=== PATIENT | female | born 1930 | race Caucasian/White ===

== ENCOUNTER 2018-12-03 14:18 | Emergency (ER) | payer MEDICARE, OTHER ==
[~2018-12-03] VITALS: Ht 147.3 cm; Wt 64.9 kg
[~2018-12-03 14:18] MED LIST: ASPI325T32 PO; CALC-654 PO; CALC-823 PO; DPAS20025 PO; FISH1CAP15 PO; FLEC100T PO; HYDR-3923 PO; LEVO75TA6 PO; MV-M1TAB38 PO; NITR-65 PO; PHEN64.8 PO; PRAV40TA2 PO
--- OUTSIDE RECORDS SUMMARY | 2018-12-03 15:16 | XMS REPORT | Continuity of Care Document ---
Author Author [facility] Organization [facility] Address Unknown Phone Unavailable Allergies Active Description Code Type Severity Reaction Onset Reported/Identified Relationship to Patient Clinical Status Yes codeine [id number] Drug Allergy Unknown N/A 01/01/2016 Yes hydrocodone [id number] Drug Allergy Unknown N/A 01/01/2016 Yes iodine [id number] Drug Allergy Unknown N/A 01/01/2016 Yes IV DYE IV DYE Unknown N/A 01/01/2016 Yes sulfamethoxazole [id number] Drug Allergy Unknown N/A 01/01/2016 Yes trimethoprim [id number] Drug Allergy Unknown N/A 01/01/2016 Medications There is no data. 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 Results There is no data. Encounters ACCT No. Visit Date/Time Discharge Status Pt. Type Provider Facility Loc./Unit Complaint [id number] 12/03/2018 14:19:00 ACT Emergency BL[facility]ST [facility] ER FALL [id number] 01/01/2016 08:59:00 Document Registration
--- NOTE | 2018-12-03 16:50 | ED Trauma-Multisystem ---
General Chief Complaint: Trauma-Non Activation Stated Complaint: FALL Nursing Triage Note: TO ED PER EMS FROM [facility] PATIENT WAS GETTING OUT OF CHAIR R KNEE GAVE OUT. HAS PROBLEMS WITH KNEE HAD INJECTION YESTERDAY IN R KNEE. FELL TO FLOOR HITTING HEAD NO LOC ALERT ON ADMIT. HEMATOMA TO FOREHEAD. Source of Information: Patient Exam Limitations: No Limitations History of Present Illness Date Seen by Provider: Dec 03, 2018 Time Seen by Provider: 14:20 Initial Comments 88 year old female who was brought to the emergency room by [facility] after a fall at [facility] with complaints of a fall after her right knee gave out. She reports that she has chronic right knee issues and that she is "bone on bone" and yesterday she had an injection to the knee yesterday. She reports that she fell to the floor striking her head on the floor. She denies neck pain/LOC. She does have ecchymosis and hematoma to the right side of her forehead. She is A&O on arrival to the ED. Denies any pain at this time. She does take blood thinners. Occurred: Just Prior to Arrival Pain/Injury Location: Face Associated Symptoms (Fall): Denies Symptoms Allergies and Home Medications Allergies Coded Allergies: codeine (Unverified Allergy, Unknown, 01/01/16) hydrocodone (Unverified Allergy, Unknown, 01/01/16) iodine (Verified Allergy, Unknown, 01/01/16) sulfamethoxazole (Unverified Allergy, Unknown, 01/01/16) trimethoprim (Unverified Allergy, Unknown, 01/01/16) Uncoded Allergies: IV DYE (Allergy, Unknown, 01/01/16) Home Medications Aspirin 325 Mg Tablet.dr, 325 MG PO DAILY, (Reported) Calcium Carbonate/Vitamin D3 1 Each Tablet, 1 EACH PO DAILY, (Reported) Dipyridamole/Aspirin 1 Ea Cap, 1 CAP PO BID Prescribed by: EMIL HERMAN on 01/01/16 1314 Fish Oil/Dha/Epa 1 Each Capsule, 1 EACH PO DAILY, (Reported) Flecainide Acetate 100 Mg Tablet, 100 MG PO BID, (Reported) Hydralazine HCl 25 Mg Tablet, 25 MG PO BID, (Reported) Levothyroxine Sodium 75 Mcg Tablet, 75 MCG PO DAILY, (Reported) Mv-Mn/FA/Vit K/Lycop/Lut/Zeaxa 1 Each Tablet, 1 EACH PO DAILY, (Reported) Nitrofurantoin Monohyd/M-Cryst 100 Mg Capsule, 1 TAB PO BID Prescribed by: EMIL HERMAN on 01/01/16 1314 Phenobarbital 64.8 Mg Tablet, 129.6 MG PO HS, (Reported) Pravastatin Sodium 40 Mg Tablet, 40 MG PO DAILY, (Reported) Patient Home Medication List Home Medication List Reviewed: Yes Review of Systems Review of Systems Constitutional: no symptoms reported, see HPI Skin: see HPI, other (hematoma to forehead) Psychiatric/Neurological: See HPI All Other Systems Reviewed Negative Unless Noted: Yes Past Kqbxlsm-Xiilze-Fksqvo Hx Past Med/Social Hx: Reviewed Nursing Past Med/Soc Hx Patient Social History Alcohol Use: Denies Use Recreational Drug Use: No Smoking Status: Never a Smoker Recent Foreign Travel: No Contact w/Someone Who Travel: No Recent Infectious Disease Expo: No Immunizations Up To Date Tetanus Booster (TDap): Less than 5yrs Past Medical History Surgeries: Yes (pacemaker/knee replacement/nose surgery (cancer)) Joint Replacement Respiratory: No Cardiac: Yes (has pacemaker) Irregular Heartbeat Neurological: Yes Seizure Disorder, TIA Reproductive Disorders: No Gastrointestinal: No Musculoskeletal: Yes Arthritis Endocrine: No Cancer: Yes (nose) Psychosocial: No Integumentary: No Blood Disorders: No Family Medical History Reviewed Nursing Family Hx Physical Exam Vital Signs Vital Signs - First Documented 12/03/18 12/03/18 14:18 17:06 Temp 98.0 Pulse 100 Resp 18 B/P (MAP) 150/116 (127) Pulse Ox 96 O2 Delivery Room Air Height, Weight, BMI Height: 4'10.00" Weight: 143lbs. oz. 64.827465jl; BMI Method:Stated General Appearance: No Apparent Distress, WD/WN Head: Ecchymosis (and hematoma to right side of forehead) Eyes: Bilateral Eye Normal Inspection, Bilateral Eye PERRL, Bilateral Eye EOMI Ears, Nose, Throat: Hearing Grossly Normal, No Evidence of ENT Injury, No Dental Injury Neck: Full Range of Motion, Normal Inspection, Non Tender, Supple Cardiovascular: Regular Rate, Rhythm, No Edema, No Gallop, No JVD, No Murmur, Normal Peripheral Pulses Respiratory: Chest Non Tender, Lungs Clear, Normal Breath Sounds, No Accessory Muscle Use, No Respiratory Distress Extremity: Normal Capillary Refill, Normal Inspection, Normal Range of Motion, Non Tender, No Calf Tenderness, No Pedal Edema, Other Neurologic/Psychiatric: Alert, Oriented x3, Normal Mood/Affect Skin: Normal Color, Warm/Dry Custer Coma Score Best Eye Response (Custer): (4) Open Spontaneously Best Verbal Response (Custer): (5) Oriented Best Motor Response (Melisa): (6) Obeys Commands Melisa Total: 15 Progress/Results/Core Measures Results/Orders My Orders Orders - [facility]UE [facility]ST Ct Head Wo (12/03/18 14:24) Vital Signs/I&O 12/03/18 12/03/18 14:18 17:06 Temp 98.0 Pulse 100 Resp 18 18 B/P (MAP) 150/116 (127) 139/100 (113) Pulse Ox 96 95 O2 Delivery Room Air Room Air Blood Pressure Mean: 127 Progress Progress Note : Time: 16:49 Progress Note I have seen and evaluated the patient. I have informed her and her family of imaging studies. She was able to transfer to [facility] with out difficulty. She agrees with plan of care, plans for discharge, return precautions were given. Diagnostic Imaging Diagonstic Imaging: CT Plain Films/CT/US/NM/MRI: head Comments NAME: MAKAYLA POLANCO [facility] REC#: [id number] PHYSICIAN: [facility] CC: KENNETH BEST STEPHEN D MD Page 2 of 2 RADIOLOGY REPORT [facility], [place] CC: KENNETH BEST STEPHEN D MD Page 1 of 1 RADIOLOGY REPORT NAME: MAKAYLA POLANCO [facility] REC#: [id number] PT STATUS: REG ER : 1930 PHYSICIAN: [facility] ADMIT DATE: 12/03/18/ER Signed Date of Exam: 12/03/18 CT HEAD WO PROCEDURE: CT head without contrast. TECHNIQUE: Multiple contiguous axial images were obtained through the brain without the use of intravenous contrast. INDICATION: Fall. COMPARISON: Correlation is made with prior head CT from 01/01/2016. FINDINGS: There appears to be some mild soft tissue swelling in the right frontal scalp. Ventricles and sulci remain prominent consistent with the patient's age. Moderate periventricular hypodensity is noted consistent with senescent change. 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 No sulcal effacement or midline shift is identified. No acute intra-axial or extra-axial hemorrhage is identified. Cisterns are patent. Visualized paranasal sinuses are clear. IMPRESSION: 1. Right frontal scalp swelling. 2. Chronic and senescent changes. No acute intracranial process is identified. Dictated by: Dictated on workstation # [id number] Dict: 12/03/18 1446 Trans: 12/03/18 1614 Interpreted by: LENORA AMANDA MD Electronically signed by: LENORA AMANDA MD 12/03/18 1614 Reviewed: Reviewed by Me Departure Impression Primary Impression: Fall Additional Impression: Facial contusion Disposition: 01 HOME, SELF-CARE Condition: Stable/Unchanged Departure-Patient Inst. Decision time for Depature: 16:49 Referrals: NO,LOCAL PHYSICIAN (PCP/Family) Primary Care Physician Patient Instructions: Contusion (DC) Add. Discharge Instructions: Be sure to ask for assistance when you are transferring to prevent falling again. Return back to the emergency room for worsening symptoms or concerns as needed. All discharge instructions reviewed with patient and/or family. Voiced understanding. BLUE BEST Dec 03, 2018 16:50
[2018-12-03 17:06] VITALS: BP 139/100
== END 2018-12-03 17:10 | disposition home or self-care (01) ==
LOC: EDUNIT# 14:18 → ER 14:19
DX: S00.83XA Contusion of other part of head, initial encounter (principal); G40.909 Epilepsy, unspecified, not intractable, without status epilepticus; Z86.73 Personal history of transient ischemic attack (TIA), and cerebral infarction without residual deficits; Z88.5 Allergy status to narcotic agent; Z91.041 Radiographic dye allergy status; Z88.2 Allergy status to sulfonamides; Z88.8 Allergy status to other drugs, medicaments and biological substances; Z79.82 Long term (current) use of aspirin; Z95.0 Presence of cardiac pacemaker; W07.XXXA Fall from chair, initial encounter; W22.09XA Striking against other stationary object, initial encounter
CPT/HCPCS: 70450

== ENCOUNTER 2019-01-06 10:08 | Emergency (ER) | payer MEDICARE, OTHER ==
[~2019-01-06] VITALS: Ht 147.3 cm; Wt 64.4 kg
--- OUTSIDE RECORDS SUMMARY | 2019-01-06 10:12 | XMS REPORT | Continuity of Care Document ---
Author Organization Unknown Address Unknown Allergies Active Description Code Type Severity Reaction Onset Reported/Identified Relationship to Patient Clinical Status Yes codeine [id number] Drug Allergy Unknown N/A 01/01/2016 Yes hydrocodone [id number] Drug Allergy Unknown N/A 01/01/2016 Yes iodine [id number] Drug Allergy Unknown N/A 01/01/2016 Yes IV DYE IV DYE Unknown N/A 01/01/2016 Yes sulfamethoxazole [id number] Drug Allergy Unknown N/A 01/01/2016 Yes trimethoprim [id number] Drug Allergy Unknown N/A 01/01/2016 Medications There is no data. 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 01/01/2016 Ot Z79.82 SENIOR LIVING ( CURRENT) USE OF ASPIRIN 01/01/2016 Ot 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 PACEMAKER 12/03/2018 [facility] Ot G40.909 EPILEPSY, UNSP, NOT INTRACTABLE, WITHOUT 12/03/2018 BLUE [facility]ST Ot S00.83XA CONTUSION OF OTHER PART OF HEAD, INITIAL 12/03/2018 BLUE BEST Ot W07.XXXA FALL FROM CHAIR, INITIAL ENCOUNTER 12/03/2018 BLUE [facility]ST Ot W22.09XA STRIKING AGAINST OTHER STATIONARY OBJECT 12/03/2018 BLUE BEST Ot Z79.82 SENIOR LIVING (CURRENT) USE OF ASPIRIN 12/03/2018 BLUE BEST Ot Z86.73 PRSNL HX OF TIA (TIA), AND CEREB INFRC W 12/03/2018 BLUE BEST Ot Z88.2 ALLERGY STATUS TO SULFONAMIDES STATUS 12/03/2018 MYRA BESTIS Ot Z88.5 ALLERGY STATUS TO NARCOTIC AGENT STATUS 12/03/2018 NASIR BLUE Ot Z88.8 ALLERGY STATUS TO OTH DRUG/MEDS/BIOL SUB 12/03/2018 NASIR, BLUE Ot Z91.041 RADIOGRAPHIC DYE ALLERGY STATUS 12/03/2018 NASIR, BLUE Ot 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 PACEMAKER 12/05/2018 BLUE BEST Ot G40.909 EPILEPSY, UNSP, NOT INTRACTABLE, WITHOUT 12/05/2018 MYRA BESTIS Ot S00.83XA CONTUSION OF OTHER PART OF HEAD, INITIAL 12/05/2018 BLUE [facility]ST Ot W07.XXXA FALL FROM CHAIR, INITIAL ENCOUNTER 12/05/2018 BLUE BEST Ot W22.09XA STRIKING AGAINST OTHER STATIONARY OBJECT 12/05/2018 [facility]ST Ot Z79.82 SENIOR LIVING (CURRENT) USE OF ASPIRIN 12/05/2018 MYRA BESTIS Ot Z86.73 PRSNL HX OF TIA (TIA), AND CEREB INFRC W 12/05/2018 MYRA BESTIS Ot Z88.2 ALLERGY STATUS TO SULFONAMIDES STATUS 12/05/2018 NASIR BLUE Ot Z88.5 ALLERGY STATUS TO NARCOTIC AGENT STATUS 12/05/2018 NASIR BLUE Ot Z88.8 ALLERGY STATUS TO OTH DRUG/MEDS/BIOL SUB 12/05/2018 MYRA BESTIS Ot Z91.041 RADIOGRAPHIC DYE ALLERGY STATUS 12/05/2018 NASIR BLUE Ot 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 PACEMAKER Procedures There is no data. Results There is no data. Encounters ACCT No. Visit Date/Time Discharge Status Pt. Type Provider Facility Loc./Unit Complaint [id number] 12/03/2018 14:19:00 12/03/2018 17:10:00 DIS Emergency BLUE [facility]ST [facility] ER FALL [id number] 01/06/2019 10:09:00 ACT Emergency KARIN CUADRA MD [facility] ER FALL [id number] 01/01/2016 08:59:00 Document Registration
--- NOTE | 2019-01-06 10:32 | ED Fall/Injury ---
General Chief Complaint: Trauma-Non Activation Stated Complaint: FALL Nursing Triage Note: PT BROUGHT IN BY EMS FROM [facility] WITH COMPLAINT OF FALL. PT STATES SHE WAS IN THE SHOWER AND SLIPPED. STATES SHE HIT HER RIGHT ELBOW AND RIGHT SIDE OF HEAD. DENIES LOC. DENIES ANYOTHER INJURY. Source: patient, EMS Exam Limitations: no limitations History of Present Illness Date Seen by Provider: Jan 06, 2019 Time Seen by Provider: 10:05 Initial Comments The patient presents to ER by EMS from via [facility] with chief complaint that just prior to arrival she was in the shower with staff and the drain was not draining the water's and she slipped in the water and fell against her right elbow and struck the right occiput of her head. She does not take her Eliquis anymore because they took it off secondary to her history of falls. She does still take aspirin however. She denies any dysuria, fevers chills cough shortness of breath or other recent history of illness. She had a large bump on her right elbow which is giving her the most pain. Sitting minor discomfort in her right hip but was able to walk to the cot with EMS. Location Injury Occurred: [facility] Allergies and Home Medications Allergies Coded Allergies: codeine (Unverified Allergy, Unknown, 01/01/16) hydrocodone (Unverified Allergy, Unknown, 01/01/16) iodine (Verified Allergy, Unknown, 01/01/16) sulfamethoxazole (Unverified Allergy, Unknown, 01/01/16) trimethoprim (Unverified Allergy, Unknown, 01/01/16) Uncoded Allergies: IV DYE (Allergy, Unknown, 01/01/16) Home Medications Aspirin 325 Mg Tablet.dr, 325 MG PO DAILY, (Reported) Calcium Carbonate/Vitamin D3 1 Each Tablet, 1 EACH PO DAILY, (Reported) Dipyridamole/Aspirin 1 Ea Cap, 1 CAP PO BID Prescribed by: EMIL HERMAN on 01/01/16 1314 Fish Oil/Dha/Epa 1 Each Capsule, 1 EACH PO DAILY, (Reported) Flecainide Acetate 100 Mg Tablet, 100 MG PO BID, (Reported) Hydralazine HCl 25 Mg Tablet, 25 MG PO BID, (Reported) Levothyroxine Sodium 75 Mcg Tablet, 75 MCG PO DAILY, (Reported) Mv-Mn/FA/Vit K/Lycop/Lut/Zeaxa 1 Each Tablet, 1 EACH PO DAILY, (Reported) Nitrofurantoin Monohyd/M-Cryst 100 Mg Capsule, 1 TAB PO BID Prescribed by: EMIL HERMAN on 01/01/16 1314 Phenobarbital 64.8 Mg Tablet, 129.6 MG PO HS, (Reported) Pravastatin Sodium 40 Mg Tablet, 40 MG PO DAILY, (Reported) Patient Home Medication List Home Medication List Reviewed: Yes Review of Systems Review of Systems Constitutional: No chills, No fever Eyes: Denies Blindness, Denies Blurred Vision, Denies Drainage Ears, Nose, Mouth, Throat: denies ear pain, denies ear discharge Respiratory: No cough, No short of breath Cardiovascular: No chest pain, No edema Gastrointestinal: No abdominal pain, No constipation, No diarrhea, No nausea Genitourinary: No discharge, No dysuria Musculoskeletal: No back pain; joint pain (right elbow and right hip) Past Edxcrsu-Debhgr-Umkbap Hx Patient Social History Alcohol Use: Denies Use Recreational Drug Use: No Smoking Status: Never a Smoker Recent Foreign Travel: No Contact w/Someone Who Travel: No Recent Infectious Disease Expo: No Immunizations Up To Date Tetanus Booster (TDap): Less than 5yrs Past Medical History Surgeries: Yes (pacemaker/knee replacement/nose surgery (cancer)) Joint Replacement Respiratory: No Cardiac: Yes (has pacemaker) Irregular Heartbeat Neurological: Yes Seizure Disorder, TIA Reproductive Disorders: No Gastrointestinal: No Musculoskeletal: Yes Arthritis Endocrine: No Cancer: Yes (nose) Psychosocial: No Integumentary: No Blood Disorders: No Physical Exam Vital Signs Vital Signs - First Documented 01/06/19 10:10 Pulse 86 Resp 20 B/P (MAP) 161/119 (133) Pulse Ox 97 O2 Delivery Room Air Capillary Refill : Less Than 3 Seconds Height, Weight, BMI Height: 4'10.00" Weight: 142lbs. oz. 64.943413qs; BMI Method:Stated General Appearance: WD/WN, no apparent distress HEENT: PERRL/EOMI, normal ENT inspection, pharynx normal Neck: non-tender, full range of motion, normal inspection Cardiovascular: normal peripheral pulses, regular rate, rhythm, no edema Respiratory: chest non-tender, lungs clear, normal breath sounds, no respiratory distress, no accessory muscle use Gastrointestinal: normal bowel sounds, non tender, soft, no organomegaly Extremities: normal range of motion, swelling (right olecranon bursa is about 2 cm.), other (tenderness in the right elbow but no deformity or swelling. Mild tenderness in the posterior proximal right femur.) Neurologic/Psychiatric: director of public safety II-XII nml as tested, no motor/sensory deficits, alert, normal mood/affect, oriented x 3 Skin: normal color, warm/dry Melisa Coma Score Best Eye Response: (4) Open Spontaneously Best Verbal Response: (5) Oriented Best Motor Response: (6) Obeys Commands [place] Total: 15 Progress/Results/Core Measures Results/Orders Lab Results Laboratory Tests Test 01/06/19 10:39 Range/Units Urine Color YELLOW Urine Clarity CLEAR Urine pH 6.5 5-9 Urine Specific [place] 1.010 L 1.016-1.022 Urine Protein NEGATIVE NEGATIVE Urine Glucose (UA) NEGATIVE NEGATIVE Urine Ketones NEGATIVE NEGATIVE Urine Nitrite NEGATIVE NEGATIVE Urine Bilirubin NEGATIVE NEGATIVE Urine Urobilinogen NORMAL NORMAL MG/DL Urine Leukocyte Esterase NEGATIVE NEGATIVE Urine RBC (Auto) NEGATIVE NEGATIVE Urine RBC NONE /HPF Urine WBC 2-5 /HPF Urine Squamous Epithelial Cells RARE /HPF Urine Crystals NONE /LPF Urine Bacteria MODERATE H /HPF Urine Casts NONE /LPF Urine Mucus NEGATIVE /LPF Urine Culture Indicated YES My Orders Orders - JOSE L COLINDRES Elbow, Right, 3 Views (01/06/19 10:23) Hip, Right, 2 Views (01/06/19 10:23) Ct Head/Cervical Spine Wo (01/06/19 10:23) Ua Culture If Indicated (01/06/19 10:41) Urine Culture (01/06/19 10:39) Vital Signs/I&O 01/06/19 10:10 Pulse 86 Resp 20 B/P (MAP) 161/119 (133) Pulse Ox 97 O2 Delivery Room Air Blood Pressure Mean: 133 Progress Progress Note : Time: 10:31 Progress Note Patient's having some tenderness in her right hip although she is able to walk on it. We'll obtain a plain film. She has swelling of the bursa over her olecranon process on the right side so we'll get a plain film x-ray of the right elbow. We'll get CT of the head and neck. She's declined laboratory urine and does not have any historical indication. Diagnostic Imaging Diagonstic Imaging: CT (noncontrast) Plain Films/CT/US/NM/MRI: c-spine, head Comments [facility] [place], [place] NAME: MAKAYLA POLANCO [facility] REC#: [id number] PT STATUS: REG ER : 1930 PHYSICIAN: JOSE L COLINDRES MD ADMIT DATE: 01/06/19/ER Draft Date of Exam:01/06/19 CT HEAD/CERVICAL SPINE WO PROCEDURE: CT head and CT cervical spine without contrast. TECHNIQUE: Multiple contiguous axial images were obtained through the brain and cervical spine without the use of intravenous contrast. Sagittal and coronal reformations through the cervical spine were then performed. Auto Exposure Controls were utilized during the CT exam to meet ALARA standards for radiation dose reduction. INDICATION: Trauma, head and neck pain. CT of the head: This exam is less than optimal due to streak artifact. FINDINGS: There is no mass, shift of midline or hemorrhage to suggest an acute intracranial abnormality. The ventricles are not abnormally dilated and similar in size to the prior exam of 12/03/2018. The cortical atrophy and periventricular encephalomalacia seen on the previous study are again evident and no different. The bone windows show no sign of a fracture or destructive lesion. The orbits are symmetrical and within normal limits. The sinuses are generally clear. IMPRESSION: 1. There is no evidence for an acute intracranial abnormality. When compared to the prior study, there has been no significant change. 2. If the patient is anticoagulated and the patient's symptoms of headache persist, then a short-term (24 hour) followup CT head exam should be obtained for further evaluation. CT cervical spine: There are no prior studies available for comparison. FINDINGS: The sagittal reconstructed images show the vertebral body heights and alignment to be generally within normal limits. The intervertebral spaces are fairly well-maintained given the patient's advanced age. There is no evidence for a high-grade central stenosis. There is no fracture or acute bony abnormality appreciated. There is no sign of retropharyngeal edema. The thyroid gland is unremarkable. The lung apices are clear. IMPRESSION: 1. There is no evidence for an acute bony abnormality. 2. These results were discussed with Dr. Jose L Colindres. Dictated on workstation # [id number] Dict: 01/06/19 1140 Trans: 01/06/19 1152 [id number] Interpreted by: RUBEN PACHECO MD Electronically signed by: Reviewed: Reviewed by Me Diagonstic Imaging: Xray Plain Films/CT/US/NM/MRI: elbow (r) Comments [facility] [place] [place] NAME: MAKAYLA POLANCO [facility] REC#: [id number] PT STATUS: REG ER : 1930 PHYSICIAN: JOSE L COLINDRES MD ADMIT DATE: 01/06/19/ER Draft Date of Exam:01/06/19 ELBOW, RIGHT, 3 VIEWS EXAMINATION: Right elbow radiographs, 3 views. COMPARISON: None. HISTORY: 88-year-old female, fall. Right elbow pain and swelling. FINDINGS: There is prominent soft tissue swelling adjacent to the olecranon. There is no identified radiopaque foreign body. There is no large elbow joint effusion. The lateral view is obliquely positioned. There is degenerative type enthesopathy at the common extensor tendon attachment. There is a lucency overlying the distal humerus on image 2; however, this is extending across the patient's soft tissues and also into the adjacent air. This particular lucency is very likely artifactual. There is no convincing acute fracture identified. There is no elbow joint dislocation. IMPRESSION: 1. Prominent soft tissue swelling adjacent to the olecranon. 2. No definite acute fracture at the level of the elbow. 2. No elbow joint dislocation. Dictated on workstation # [id number] Dict: 01/06/19 1102 Trans: 01/06/19 1110 [id number] Interpreted by: PK ROCHE MD Electronically signed by: Reviewed: Reviewed by Me Diagonstic Imaging: Xray Plain Films/CT/US/NM/MRI: hip (r) Comments [facility] [place] [place] NAME: MAKAYLA POLANCO [facility] REC#: [id number] PT STATUS: REG ER : 1930 PHYSICIAN: JOSE L COLINDRES MD ADMIT DATE: 01/06/19/ER Draft Date of Exam:01/06/19 HIP, RIGHT, 2 VIEWS PATIENT HISTORY: Fall, right hip pain. TECHNIQUE: 2 views of the right hip COMPARISON: None FINDINGS: There are moderate degenerative changes in the right hip joint. The femoral head is well-seated in the acetabulum. No acute fracture seen in the right hip. There is calcific atherosclerosis. IMPRESSION: Moderate degenerative changes in the right hip with no acute fracture seen. Dictated on workstation # [id number] Dict: 01/06/19 1106 Trans: 01/06/19 1110 [id number] Interpreted by: RACIEL WAITE MD Electronically signed by: Reviewed: Reviewed by Me Departure Impression Primary Impression: Fall Qualified Codes: W19.XXXA - Unspecified fall, initial encounter Additional Impressions: Olecranon bursitis of right elbow Acute right hip pain Disposition: 01 HOME, SELF-CARE Condition: Stable Departure-Patient Inst. Decision time for Depature: 12:26 Referrals: NO,LOCAL PHYSICIAN (PCP/Family) Primary Care Physician Patient Instructions: Olecranon Bursitis (DC) Add. Discharge Instructions: Keep the elbow wrapped with Vishal bandage and apply ice for 20 minutes every 4 hours for the first 2-3 days. You can use ibuprofen or Tylenol. Follow-up with primary care if it's not improving in 2-4 weeks. All discharge instructions reviewed with patient and/or family. Voiced understanding. JOSE L COLINDRES Jan 06, 2019 10:32
[2019-01-06 10:46] LABS: BILIRUBIN,URINE NEGATIVE (NEGATIVE); CLARITY,URINE CLEAR; COLOR,URINE YELLOW; GLUCOSE, URINE (UA) NEGATIVE (NEGATIVE); KETONES,URINE NEGATIVE (NEGATIVE); LEUKOCYTE ESTERASE ,URINE NEGATIVE (NEGATIVE); NITRITE,URINE NEGATIVE (NEGATIVE); PH,URINE 6.5 (5-9); PROTEIN,URINE NEGATIVE (NEGATIVE); UROBILINOGEN,URINE NORMAL (NORMAL)
[2019-01-06 10:53] LABS: BACTERIA,URINE MODERATE /HPF; SQUAMOUS EPITHELIAL CELL,UR RARE /HPF
--- NOTE | 2019-01-06 11:10 | Diagnostic Imaging Report ---
PATIENT HISTORY: Fall, right hip pain. TECHNIQUE: 2 views of the right hip COMPARISON: None FINDINGS: There are moderate degenerative changes in the right hip joint. The femoral head is well-seated in the acetabulum. No acute fracture seen in the right hip. There is calcific atherosclerosis. IMPRESSION: Moderate degenerative changes in the right hip with no acute fracture seen. Dictated by: Dictated on workstation # [id number]
--- NOTE | 2019-01-06 11:10 | Diagnostic Imaging Report ---
EXAMINATION: Right elbow radiographs, 3 views. COMPARISON: None. HISTORY: 88-year-old female, fall. Right elbow pain and swelling. FINDINGS: There is prominent soft tissue swelling adjacent to the olecranon. There is no identified radiopaque foreign body. There is no large elbow joint effusion. The lateral view is obliquely positioned. There is degenerative type enthesopathy at the common extensor tendon attachment. There is a lucency overlying the distal humerus on image 2; however, this is extending across the patient's soft tissues and also into the adjacent air. This particular lucency is very likely artifactual. There is no convincing acute fracture identified. There is no elbow joint dislocation. IMPRESSION: 1. Prominent soft tissue swelling adjacent to the olecranon. 2. No definite acute fracture at the level of the elbow. 2. No elbow joint dislocation. Dictated by: Dictated on workstation # [id number]
--- NOTE | 2019-01-06 11:52 | Diagnostic Imaging Report ---
PROCEDURE: CT head and CT cervical spine without contrast. TECHNIQUE: Multiple contiguous axial images were obtained through the brain and cervical spine without the use of intravenous contrast. Sagittal and coronal reformations through the cervical spine were then performed. Auto Exposure Controls were utilized during the CT exam to meet ALARA standards for radiation dose reduction. INDICATION: Trauma, head and neck pain. CT of the head: This exam is less than optimal due to streak artifact. FINDINGS: There is no mass, shift of midline or hemorrhage to suggest an acute intracranial abnormality. The ventricles are not abnormally dilated and similar in size to the prior exam of 12/03/2018. The cortical atrophy and periventricular encephalomalacia seen on the previous study are again evident and no different. The bone windows show no sign of a fracture or destructive lesion. The orbits are symmetrical and within normal limits. The sinuses are generally clear. IMPRESSION: 1. There is no evidence for an acute intracranial abnormality. When compared to the prior study, there has been no significant change. 2. If the patient is anticoagulated and the patient's symptoms of headache persist, then a short-term (24 hour) followup CT head exam should be obtained for further evaluation. CT cervical spine: There are no prior studies available for comparison. FINDINGS: The sagittal reconstructed images show the vertebral body heights and alignment to be generally within normal limits. The intervertebral spaces are fairly well-maintained given the patient's advanced age. There is no evidence for a high-grade central stenosis. There is no fracture or acute bony abnormality appreciated. There is no sign of retropharyngeal edema. The thyroid gland is unremarkable. The lung apices are clear. IMPRESSION: 1. There is no evidence for an acute bony abnormality. 2. These results were discussed with Dr. Jose L Colindres. Dictated by: Dictated on workstation # [id number]
[2019-01-06 13:05] VITALS: BP 132/79
== END 2019-01-06 13:05 | disposition home or self-care (01) ==
LOC: EDUNIT# 10:08 → ER 10:09
DX: M70.21 Olecranon bursitis, right elbow (principal); M25.551 Pain in right hip; G40.909 Epilepsy, unspecified, not intractable, without status epilepticus; R40.2142 Coma scale, eyes open, spontaneous, at arrival to emergency department; R40.2252 Coma scale, best verbal response, oriented, at arrival to emergency department; R40.2362 Coma scale, best motor response, obeys commands, at arrival to emergency department; Z85.828 Personal history of other malignant neoplasm of skin; Z86.73 Personal history of transient ischemic attack (TIA), and cerebral infarction without residual deficits; Z88.5 Allergy status to narcotic agent; Z91.041 Radiographic dye allergy status; Z88.2 Allergy status to sulfonamides; Z88.8 Allergy status to other drugs, medicaments and biological substances; Z79.82 Long term (current) use of aspirin; Z95.0 Presence of cardiac pacemaker; Z91.81 History of falling; W01.0XXA Fall on same level from slipping, tripping and stumbling without subsequent striking against object, initial encounter; Y92.002 Bathroom of unspecified non-institutional (private) residence as the place of occurrence of the external cause
CPT/HCPCS: 51701; 70450; 72125; 73080; 73502; 81000; 87077; 87088

== ENCOUNTER 2019-03-23 14:25 | Emergency (ER) | payer MEDICARE, OTHER | END 2019-03-23 16:56 | disposition home or self-care (01) | LOC: ER 14:25 ==

== ENCOUNTER 2019-03-25 11:29 | Emergency (ER) | payer MEDICARE, OTHER ==
[~2019-03-25] VITALS: Ht 147.3 cm; Wt 63.5 kg
[~2019-03-25 11:29] MED LIST changes: +CEPH-507 PO
--- OUTSIDE RECORDS SUMMARY | 2019-03-25 11:36 | XMS REPORT | Continuity of Care Document ---
Author Organization Unknown Address Unknown Allergies Active Description Code Type Severity Reaction Onset Reported/Identified Relationship to Patient Clinical Status Yes codeine [id number] Drug Allergy Unknown N/A 01/01/2016 Yes hydrocodone [id number] Drug Allergy Unknown N/A 01/01/2016 Yes iodine [id number] Drug Allergy Unknown N/A 01/01/2016 Yes IV DYE IV DYE Unknown N/A 01/01/2016 Yes sulfamethoxazole [id number] Drug Allergy Unknown N/A 01/01/2016 Yes trimethoprim [id number] Drug Allergy Unknown N/A 01/01/2016 Medications There is no data. 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 01/01/2016 Ot Z79.82 GROUP HOME (CURRENT) USE OF ASPIRIN 01/01/2016 Ot 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 PACEMAKER 12/03/2018 BLUE BEST Ot G40.909 EPILEPSY, UNSP, NOT INTRACTABLE, WITHOUT 12/03/2018 BLUE BEST Ot S00.83XA CONTUSION OF OTHER PART OF HEAD, INITIAL 12/03/2018 BLUE BEST Ot W07.XXXA FALL FROM CHAIR, INITIAL ENCOUNTER 12/03/2018 BLUE BEST Ot W22.09XA STRIKING AGAINST OTHER STATIONARY OBJECT 12/03/2018 BLUE BEST Ot Z79.82 GROUP HOME (CURRENT) USE OF ASPIRIN 12/03/2018 BLUE BEST Ot Z86.73 PRSNL HX OF TIA (TIA), AND CEREB INFRC W 12/03/2018 BLUE BEST Ot Z88.2 ALLERGY STATUS TO SULFONAMIDES STATUS 12/03/2018 NASIR BLUE Ot Z88.5 ALLERGY STATUS TO NARCOTIC AGENT STATUS 12/03/2018 MYRA BESTIS Ot Z88.8 ALLERGY STATUS TO OTH DRUG/MEDS/BIOL SUB 12/03/2018 NASIR, BLUE Ot Z91.041 RADIOGRAPHIC DYE ALLERGY STATUS 12/03/2018 MYRA BESTIS Ot 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 PACEMAKER 12/05/2018 MYRA BESTIS Ot G40.909 EPILEPSY, UNSP, NOT INTRACTABLE, WITHOUT 12/05/2018 NASIR BLUE Ot S00.83XA CONTUSION OF OTHER PART OF HEAD, INITIAL 12/05/2018 BLUE BEST Ot W07.XXXA FALL FROM CHAIR, INITIAL ENCOUNTER 12/05/2018 BLUE BEST Ot W22.09XA STRIKING AGAINST OTHER STATIONARY OBJECT 12/05/2018 BLUE BEST Ot Z79.82 GROUP HOME (CURRENT) USE OF ASPIRIN 12/05/2018 MYRA BESTIS Ot Z86.73 PRSNL HX OF TIA (TIA), AND CEREB INFRC W 12/05/2018 NASIR BLUE Ot Z88.2 ALLERGY STATUS TO SULFONAMIDES STATUS 12/05/2018 NASIR BLUE Ot Z88.5 ALLERGY STATUS TO NARCOTIC AGENT STATUS 12/05/2018 NASIR BLUE Ot Z88.8 ALLERGY STATUS TO OTH DRUG/MEDS/BIOL SUB 12/05/2018 DANYELLDOUGLAS BLUE Ot Z91.041 RADIOGRAPHIC DYE ALLERGY STATUS 12/05/2018 MYRA BESTIS Ot 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 PACEMAKER 01/06/2019 KARIN CUADRA MD Ot G40.909 EPILEPSY, UNSP, NOT INTRACTABLE, WITHOUT 01/06/2019 KARIN CUADRA MD Ot M25.551 PAIN IN RIGHT HIP 01/06/2019 KARIN CUADRA MD Ot M70.21 OLECRANON BURSITIS, RIGHT ELBOW 01/06/2019 KARIN CUADRA MD Ot R40.2142 COMA SCALE, EYES OPEN, SPONTANEOUS, EMR 01/06/2019 KARIN CUADRA MD Ot R40.2252 COMA SCALE, BEST VERBAL RESPONSE, ORIENT 01/06/2019 KARIN CUADRA MD Ot R40.2362 COMA SCALE, BEST MOTOR RESPONSE, OBEYS C 01/06/2019 KARIN CUADRA MD Ot R51 HEADACHE 01/06/2019 KARIN CUADRA MD Ot W01.0XXA FALL SAME LEV FROM SLIP/TRIP W/O STRIKE 01/06/2019 KARIN CUADRA MD Ot Y92.002 BATHRM OF UNSP NON-INSTITUT RESDNCE SNGL 01/06/2019 KARIN CUADRA MD Ot Z79.82 [employer] (CURRENT) USE OF ASPIRIN 01/06/2019 KARIN CUADRA MD Ot Z85.828 PERSONAL HISTORY OF OTHER MALIGNANT NEOP 01/06/2019 KARIN CUADRA MD Ot Z86.73 PRSNL HX OF TIA (TIA), AND CEREB INFRC W 01/06/2019 KARIN CUADRA MD Ot Z88.2 ALLERGY STATUS TO SULFONAMIDES STATUS 01/06/2019 KARIN CUADRA MD Ot Z88.5 ALLERGY STATUS TO NARCOTIC AGENT STATUS 01/06/2019 KARIN CUADRA MD Ot Z88.8 ALLERGY STATUS TO OTH DRUG/MEDS/BIOL SUB 01/06/2019 KARIN CUADRA MD Ot Z91.041 RADIOGRAPHIC DYE ALLERGY STATUS 01/06/2019 KARIN CUADRA MD Ot Z91.81 HISTORY OF FALLING 01/06/2019 KARIN CUADRA MD Ot 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 PACEMAKER 01/08/2019 KARIN CUADRA MD Ot G40.909 EPILEPSY, UNSP, NOT INTRACTABLE, WITHOUT 01/08/2019 KARIN CUADRA MD Ot M25.551 PAIN IN RIGHT HIP 01/08/2019 KARIN CUADRA MD Ot M70.21 OLECRANON BURSITIS, RIGHT ELBOW 01/08/2019 KARIN CUADRA MD Ot R40.2142 COMA SCALE, EYES OPEN, SPONTANEOUS, EMR 01/08/2019 KARIN CUADRA MD Ot R40.2252 COMA SCALE, BEST VERBAL RESPONSE, ORIENT 01/08/2019 KARIN CUADRA MD Ot R40.2362 COMA SCALE, BEST MOTOR RESPONSE, OBEYS C 01/08/2019 KARIN CUADRA MD Ot R51 HEADACHE 01/08/2019 KARIN CUADRA MD Ot W01.0XXA FALL SAME LEV FROM SLIP/TRIP W/O STRIKE 01/08/2019 KARIN CUADRA MD Ot Y92.002 BATHRM OF UNSP NON-INSTITUT RESDNCE SNGL 01/08/2019 KARIN CUADRA MD, Ot Z79.82 [employer] (CURRENT) USE OF ASPIRIN 01/08/2019 KARIN CUADRA MD, Ot Z85.828 PERSONAL HISTORY OF OTHER MALIGNANT NEOP 01/08/2019 KARIN CUADRA MD, Ot Z86.73 PRSNL HX OF TIA (TIA), AND CEREB INFRC W 01/08/2019 KARIN CUADRA MD, Ot Z88.2 ALLERGY STATUS TO SULFONAMIDES STATUS 01/08/2019 KARIN CUADRA MD, Ot Z88.5 ALLERGY STATUS TO NARCOTIC AGENT STATUS 01/08/2019 KARIN CUADRA MD, Ot Z88.8 ALLERGY STATUS TO OTH DRUG/MEDS/BIOL SUB 01/08/2019 KARIN CUADRA MD, Ot Z91.041 RADIOGRAPHIC DYE ALLERGY STATUS 01/08/2019 KARIN CUADRA MD, Ot Z91.81 HISTORY OF FALLING 01/08/2019 KARIN CUADRA MD Ot 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 PACEMAKER Procedures There is no data. Results Test Result Range Complete urinalysis with reflex to culture - 01/06/19 10:39 Urine color determination YELLOW NRG Urine clarity determination CLEAR NRG Urine pH measurement by test strip 6.5 5-9 Specific gravity of urine by test strip 1.010 1.016-1.022 Urine protein assay by test strip, semi-quantitative NEGATIVE NEGATIVE Urine glucose detection by automated test strip NEGATIVE NEGATIVE Erythrocytes detection in urine sediment by light microscopy NEGATIVE NEGATIVE Urine ketones detection by automated test strip NEGATIVE NEGATIVE Urine nitrite detection by test strip NEGATIVE NEGATIVE Urine total bilirubin detection by test strip NEGATIVE NEGATIVE Urine urobilinogen measurement by automated test strip (mass/volume) NORMAL NORMAL Urine leukocyte esterase detection by dipstick NEGATIVE NEGATIVE Automated urine sediment erythrocyte count by microscopy (number/high power field) NONE NRG Automated urine sediment leukocyte count by microscopy (number/high power field) [HPF] NRG Bacteria detection in urine sediment by light microscopy MODERATE NRG Squamous epithelial cells detection in urine sediment by light microscopy RARE NRG Crystals detection in urine sediment by light microscopy NONE NRG Casts detection in urine sediment by light microscopy NONE NRG Mucus detection in urine sediment by light microscopy NEGATIVE NRG Complete urinalysis with reflex to culture YES NR Bacterial urine culture - 01/06/19 10:39 Bacterial urine culture [id number] NR COLONY COUNT >100,000/ML NR FTX;REPORTABLE SEE COMMENTS [facility] Complete blood count (CBC) with automated white blood cell (WBC) differential - 03/23/19 14:33 Blood leukocytes automated count (number/volume) 9.8 10*3/uL 4.3-11.0 Blood erythrocytes automated count (number/volume) 4.60 10*6/uL 4.35-5.85 Venous blood hemoglobin measurement (mass/volume) 14.4 g/dL 11.5-16.0 Blood hematocrit (volume fraction) 43 % 35-52 Automated erythrocyte mean corpuscular volume 94 [foz_us] 80-99 Automated erythrocyte mean corpuscular hemoglobin (mass per erythrocyte) 31 pg 25-34 Automated erythrocyte mean corpuscular hemoglobin concentration measurement (mass/volume) 33 g/dL 32-36 Automated erythrocyte distribution width ratio 14.5 % 10.0- 14.5 Automated blood platelet count (count/volume) 245 10*3/uL 130-400 Automated blood platelet mean volume measurement 9.1 [foz_us] 7.4-10.4 Automated blood neutrophils/100 leukocytes 67 % 42-75 Automated blood lymphocytes/100 leukocytes 20 % 12-44 Blood monocytes/100 leukocytes 10 % 0-12 Automated blood eosinophils/100 leukocytes 3 % 0-10 Automated blood basophils/100 leukocytes 0 % 0-10 Blood neutrophils automated count (number/volume) 6.5 10*3 1.8-7.8 Blood lymphocytes automated count (number/volume) 2.0 10*3 1.0-4.0 Blood monocytes automated count (number/volume) 1.0 10*3 0.0- 1.0 Automated eosinophil count 0.3 10*3/uL 0.0-0.3 Automated blood basophil count (count/volume) 0.0 10*3/uL 0.0-0.1 PT panel in platelet poor plasma by coagulation assay - 03/23/19 14:33 Prothrombin time (PT) in platelet poor plasma by coagulation assay 12.9 s 12.2-14.7 INR in platelet poor plasma or blood by coagulation assay 0.9 0.8-1.4 Activated partial thromboplastin time (aPTT) in platelet poor plasma bycoagulation assay - 03/23/19 14:33 Activated partial thromboplastin time (aPTT) in platelet poor plasma bycoagulation assay 32 s 24-35 Comprehensive metabolic panel - 03/23/19 14:33 Serum or plasma sodium measurement (moles/volume) 134 mmol/L 135-145 Serum or plasma potassium measurement (moles/volume) 3.8 mmol/L 3.6-5.0 Serum or plasma chloride measurement (moles/volume) 94 mmol/L 98-107 Carbon dioxide 28 mmol/L 21-32 Serum or plasma anion gap determination (moles/volume) 12 mmol/L 5-14 Serum or plasma urea nitrogen measurement (mass/volume) 16 mg/dL 7-18 Serum or plasma creatinine measurement (mass/volume) 0.79 mg/dL 0.60-1.30 Serum or plasma urea nitrogen/creatinine mass ratio 20 NRG Serum or plasma creatinine measurement with calculation of estimated glomerular filtration rate > NRG Serum or plasma glucose measurement (mass/volume) 114 mg/dL 70-105 Serum or plasma calcium measurement (mass/volume) 9.5 mg/dL 8.5-10.1 Serum or plasma total bilirubin measurement (mass/volume) 0.3 mg/dL 0.1-1.0 Serum or plasma alkaline phosphatase measurement (enzymatic activity/volume) 114 U/L 40-136 Serum or plasma aspartate aminotransferase measurement (enzymatic activity/volume) 19 U/L 5-34 Serum or plasma alanine aminotransferase measurement (enzymatic activity/volume) 18 U/L 0-55 Serum or plasma protein measurement (mass/volume) 7.8 g/dL 6.4-8.2 Serum or plasma albumin measurement (mass/volume) 4.0 g/dL 3.2-4.5 CALCIUM CORRECTED 9.5 mg/dL 8.5-10.1 Magnesium - 03/23/19 14:33 Magnesium 1.9 mg/dL 1.8-2.4 Serum or plasma troponin i.cardiac measurement (mass/volume) - 03/23/19 14:33 Serum or plasma troponin i.cardiac measurement (mass/volume) < ng/mL <0.028 Fibrin D-dimer FEU measurement in platelet poor plasma (mass/volume) - 03/23/19 14:33 Fibrin D-dimer FEU measurement in platelet poor plasma (mass/volume) 1.31 ug/mL 0.00-0.49 Capillary blood glucose measurement by glucometer (mass/volume) - 03/23/19 15:01 Capillary blood glucose measurement by glucometer (mass/volume) 115 mg/dL 70-110 Complete urinalysis with reflex to culture - 03/23/19 15:15 Urine color determination YELLOW NRG Urine clarity determination CLEAR NRG Urine pH measurement by test strip 6 5-9 Specific gravity of urine by test strip 1.015 1.016-1.022 Urine protein assay by test strip, semi-quantitative NEGATIVE NEGATIVE Urine glucose detection by automated test strip NEGATIVE NEGATIVE Erythrocytes detection in urine sediment by light microscopy NEGATIVE NEGATIVE Urine ketones detection by automated test strip NEGATIVE NEGATIVE Urine nitrite detection by test strip NEGATIVE NEGATIVE Urine total bilirubin detection by test strip NEGATIVE NEGATIVE Urine urobilinogen measurement by automated test strip (mass/volume) NORMAL NORMAL Urine leukocyte esterase detection by dipstick NEGATIVE NEGATIVE Automated urine sediment erythrocyte count by microscopy (number/high power field) NONE NRG Automated urine sediment leukocyte count by microscopy (number/high power field) [HPF] NRG Bacteria detection in urine sediment by light microscopy LARGE NRG Crystals detection in urine sediment by light microscopy NONE NRG Casts detection in urine sediment by light microscopy NONE NRG Mucus detection in urine sediment by light microscopy NEGATIVE NRG Complete urinalysis with reflex to culture YES NRG Bacterial urine culture - 03/23/19 15:15 Bacterial urine culture [id number] NRG COLONY COUNT >100,000/ML NRG Encounters ACCT No. Visit Date/Time Discharge Status Pt. Type Provider Facility Loc./Unit Complaint [id number] 03/23/2019 14:25:00 03/23/2019 16:56:00 DIS Emergency PAMELA WYLIE, EMIL Gonzales [facility] ER STROKE LIKE SYMPTOMS [id number] 01/06/2019 10:09:00 01/06/2019 13:05:00 DIS Emergency KARIN CUADRA MD [facility] ER FALL [id number] 12/03/2018 14:19:00 12/03/2018 17:10:00 DIS Emergency BLUE BEST [facility] ER FALL [id number] 01/01/2016 08:59:00 Document Registration
[2019-03-25 12:41] LABS: BASOPHILS % (AUTO) 0 % (0-10); EOSINOPHILS # (AUTO) 0.3 10^3/uL (0.0-0.3); EOSINOPHILS % (AUTO) 4 % (0-10); HEMATOCRIT 43 % (35-52); LYMPHOCYTES # (AUTO) 1.8 X 10^3 (1.0-4.0); LYMPHOCYTES % (AUTO) 22 % (12-44); MEAN CORPUSCULAR HEMOGLOBIN 31 PG (25-34); MEAN CORPUSCULAR HGB CONC 33 G/DL (32-36); MEAN CORPUSCULAR VOLUME 94 FL (80-99); MEAN PLATELET VOLUME 8.9 FL (7.4-10.4); MONOCYTES # (AUTO) 0.8 X 10^3 (0.0-1.0); MONOCYTES % (AUTO) 10 % (0-12); NEUTROPHILS # (AUTO) 5.2 X 10^3 (1.8-7.8); NEUTROPHILS % (AUTO) 64 % (42-75); PLATELET COUNT 254 10^3/uL (130-400); RED CELL DISTRIBUTION WIDTH 14.2 % (10.0-14.5); WHITE BLOOD COUNT 8.2 10^3/uL (4.3-11.0)
[2019-03-25] MEDS ORDERED: DOCU-143 PO (12:44)
--- NOTE | 2019-03-25 12:44 | ED GI ---
General Chief Complaint: Rect Problems Stated Complaint: HEMORRID PROBLEM Nursing Triage Note: PT STARTED HAVING HEMMRHOID BLEEDING THIS AM AT 0300. PER NURSING FACILITY, HEMMRHOIDS HAVE NOT STOPPED BLEEDING. PT HAS AUDIBLE WHEEZING WELL. Sepsis Screen: No Definite Risk Source of Information: Patient, Family Exam Limitations: No Limitations History of Present Illness Date Seen by Provider: Mar 25, 2019 Time Seen by Provider: 12:40 Initial Comments To ER by family with reports of hemorrhoidal bleeding since 3 AM. The nursing facility states that they've not stopped bleeding since about 3 AM. Patient has a long-standing history of hemorrhoids but they've never bled before. She is also noticed to be wheezy. Son brought her from the group home to the hospital. She was here 2 days ago for unresponsiveness, there was conversation about restarting L it was for potential atrial fibrillation but after discussion with primary care son states that the chose not to proceed with anticoagulation given her advanced age and fall risk. Timing/Duration: 4-6 Hours Severity/Quality: Moderate Radiation: No Radiation Activities at Onset: None Allergies and Home Medications Allergies Coded Allergies: codeine (Unverified Allergy, Unknown, 01/01/16) hydrocodone (Unverified Allergy, Unknown, 01/01/16) iodine (Verified Allergy, Unknown, 01/01/16) sulfamethoxazole (Unverified Allergy, Unknown, 01/01/16) trimethoprim (Unverified Allergy, Unknown, 01/01/16) Uncoded Allergies: IV DYE (Allergy, Unknown, 01/01/16) Home Medications Aspirin 325 Mg Tablet.dr, 325 MG PO DAILY, (Reported) Calcium Carbonate/Vitamin D3 1 Each Tablet, 1 EACH PO DAILY, (Reported) Cephalexin 500 Mg Capsule, 500 MG PO TID Prescribed by: EMIL HERMAN on 03/23/19 1646 Dipyridamole/Aspirin 1 Ea Cap, 1 CAP PO BID Prescribed by: EMIL HERMAN on 01/01/16 1314 Fish Oil/Dha/Epa 1 Each Capsule, 1 EACH PO DAILY, (Reported) Flecainide Acetate 100 Mg Tablet, 100 MG PO BID, (Reported) Hydralazine HCl 25 Mg Tablet, 25 MG PO BID, (Reported) Levothyroxine Sodium 75 Mcg Tablet, 75 MCG PO DAILY, (Reported) Mv-Mn/FA/Vit K/Lycop/Lut/Zeaxa 1 Each Tablet, 1 EACH PO DAILY, (Reported) Nitrofurantoin Monohyd/M-Cryst 100 Mg Capsule, 1 TAB PO BID Prescribed by: EMIL HERMAN on 01/01/16 1314 Phenobarbital 64.8 Mg Tablet, 129.6 MG PO HS, (Reported) Pravastatin Sodium 40 Mg Tablet, 40 MG PO DAILY, (Reported) Patient Home Medication List Home Medication List Reviewed: Yes Review of Systems Review of Systems Constitutional: see HPI EENTM: No Symptoms Reported Respiratory: No Symptoms Reported Cardiovascular: No Symptoms Reported Gastrointestinal: See HPI Genitourinary: No Symptoms Reported Musculoskeletal: no symptoms reported Skin: no symptoms reported Psychiatric/Neurological: No Symptoms Reported Past Bbtshuh-Mrnmdx-Zswpnb Hx Patient Social History Alcohol Use: Denies Use Recreational Drug Use: No Smoking Status: Never a Smoker 2nd Hand Smoke Exposure: No Recent Foreign Travel: No Contact w/Someone Who Travel: No Recent Infectious Disease Expo: No Immunizations Up To Date Tetanus Booster (TDap): Less than 5yrs Past Medical History Surgeries: Yes (pacemaker/knee replacement/nose surgery (cancer)) Joint Replacement, Pacemaker Respiratory: No Cardiac: Yes (has pacemaker for treatment of bradycardia) Atrial Fibrillation, Irregular Heartbeat Neurological: Yes Seizure Disorder, TIA Reproductive Disorders: No Genitourinary: No Gastrointestinal: No Musculoskeletal: Yes Arthritis Endocrine: No HEENT: No Cancer: Yes (nose) Psychosocial: No Integumentary: No Blood Disorders: No Physical Exam Vital Signs Vital Signs - First Documented 03/25/19 11:47 Temp 98.5 Pulse 114 Resp 18 B/P (MAP) 146/120 (129) Pulse Ox 97 O2 Delivery Room Air Capillary Refill : Less Than 3 Seconds Height/Weight/BMI Height: 4'10.00" Weight: 140lbs. oz. 63.752538wy; BMI Method:Stated General Appearance: WD/WN, no apparent distress HEENT: PERRL/EOMI, normal ENT inspection Respiratory: no respiratory distress, no accessory muscle use Gastrointestinal: normal bowel sounds, non tender, soft Genital/Rectal: other (there is a minute amount of bright red blood at the anus. No active bleeding, the site of bleeding is identified at the mid right side of the anus from hemorrhoid. Again no active bleeding. On digital rectal exam there is no haseeb blood in the rectal vault either.) Extremities: normal range of motion, non-tender Neurologic/Psychiatric: alert, normal mood/affect, oriented x 3 Skin: normal color, warm/dry Progress/Results/Core Measures Results/Orders Lab Results Laboratory Tests Test 03/25/19 12:35 Range/Units My Orders Orders - JOSS VILLARREAL APRN Cbc With Automated Diff (03/25/19 12:09) Comprehensive Metabolic Panel (03/25/19 12:09) Chest 1 View, Ap/Pa Only (03/25/19 12:31) Albuterol/Ipra Inhalation Soln (Duoneb I (03/25/19 12:45) Svn Small Volume Nebulizer (03/25/19 12:31) Vital Signs/I&O 03/25/19 11:47 Temp 98.5 Pulse 114 Resp 18 B/P (MAP) 146/120 (129) Pulse Ox 97 O2 Delivery Room Air Blood Pressure Mean: 129 Departure Impression Primary Impression: Hemorrhoids Qualified Codes: K64.0 - First degree hemorrhoids Disposition: 01 HOME, SELF-CARE Condition: Stable Departure-Patient Inst. Decision time for Depature: 12:43 Referrals: NO,LOCAL PHYSICIAN (PCP/Family) Primary Care Physician Patient Instructions: Hemorrhoids (DC) Add. Discharge Instructions: 1. Stool softeners as directed. Return to ER for any concerns. All discharge instructions reviewed with patient and/or family. Voiced understanding. Scripts Docusate Sodium (Colace) 100 Mg Capsule 100 MG PO BID, #10 CAP Prov: JOSS VILLARREAL APRN 03/25/19 JOSS VILLARREAL APRN Mar 25, 2019 12:44
[2019-03-25] MEDS ORDERED: RT-ALBUTEROL/IPRATROPIUM 3 ML (DUONEB) VIAL INH ONE (12:45)
[2019-03-25 13:04] LABS: ALANINE AMINOTRANSFERASE 19 U/L (0-55); ALBUMIN 3.8 GM/DL (3.2-4.5); ALKALINE PHOSPHATASE 104 U/L (40-136); BILIRUBIN,TOTAL 0.4 MG/DL (0.1-1.0); BUN/CREATININE RATIO 21; CALCIUM 9.7 MG/DL (8.5-10.1); CARBON DIOXIDE 28 MMOL/L (21-32); CHLORIDE 93 MMOL/L (98-107); CREATININE SERUM 0.72 MG/DL (0.60-1.30); GFR ESTIMATED > 60; GLUCOSE 92 MG/DL (70-105); POTASSIUM 4.3 MMOL/L (3.6-5.0); SODIUM 132 MMOL/L (135-145); TOTAL PROTEIN 7.5 GM/DL (6.4-8.2)
--- NOTE | 2019-03-25 13:23 | Diagnostic Imaging Report ---
INDICATION: Wheezing. TIME OF EXAM: 01:07 p.m. Correlation is made with prior study of 03/23/2019. FINDINGS: The heart is enlarged but stable. Dual-lead left subclavian cardiac pacemaker remains in place. The lungs are clear. No infiltrates are seen. There is no evidence of congestive failure. No effusion or pneumothorax is seen. IMPRESSION: No acute cardiopulmonary process is detected. Dictated by: Dictated on workstation # [id number]
[2019-03-25 13:39] VITALS: BP 146/120
== END 2019-03-25 13:39 | disposition home or self-care (01) ==
LOC: EDUNIT# 11:29 → ER 11:32
DX: K64.9 Unspecified hemorrhoids (principal); I48.91 Unspecified atrial fibrillation; G40.909 Epilepsy, unspecified, not intractable, without status epilepticus; Z86.73 Personal history of transient ischemic attack (TIA), and cerebral infarction without residual deficits; Z88.5 Allergy status to narcotic agent; Z88.2 Allergy status to sulfonamides; Z88.1 Allergy status to other antibiotic agents; Z91.041 Radiographic dye allergy status; Z79.82 Long term (current) use of aspirin; Z95.0 Presence of cardiac pacemaker; Z85.59 Personal history of malignant neoplasm of other urinary tract organ
CPT/HCPCS: 36415; 71045; 80053; 85025; 94640; 99282

== ENCOUNTER 2019-05-10 23:41 | Emergency (ER) | payer MEDICARE, OTHER ==
[~2019-05-10] VITALS: Ht 147.3 cm; Wt 68.9 kg
[~2019-05-10 23:41] MED LIST changes: +DOCU-143 PO
--- OUTSIDE RECORDS SUMMARY | 2019-05-10 23:46 | XMS REPORT | Continuity of Care Document ---
Author Organization Unknown Address Unknown Phone Unavailable Allergies Active Description Code Type Severity Reaction Onset Reported/Identified Relationship to Patient Clinical Status Yes codeine [id number] Drug Allergy Unknown N/A 01/01/2016 Yes hydrocodone [id number] Drug Allergy Unknown N/A 01/01/2016 Yes iodine [id number] Drug Allergy Unknown N/A 01/01/2016 Yes IV DYE IV DYE Unknown N/A 01/01/2016 Yes sulfamethoxazole [id number] Drug Allergy Unknown N/A 01/01/2016 Yes trimethoprim [id number] Drug Allergy Unknown N/A 01/01/2016 Medications There is no data. 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 01/01/2016 Ot Z79.82 MOTION PICTURE CAMERAMAN (CURRENT) USE OF ASPIRIN 01/01/2016 Ot 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 PACEMAKER 12/03/2018 BLUE BEST Ot G40.909 EPILEPSY, UNSP, NOT INTRACTABLE, WITHOUT 12/03/2018 BLUE BEST Ot S00.83XA CONTUSION OF OTHER PART OF HEAD, INITIAL 12/03/2018 BLUE BEST Ot W07.XXXA FALL FROM CHAIR, INITIAL ENCOUNTER 12/03/2018 BLUE BEST Ot W22.09XA STRIKING AGAINST OTHER STATIONARY OBJECT 12/03/2018 BLUE BEST Ot Z79.82 FDC (CURRENT) USE OF ASPIRIN 12/03/2018 BLUE BEST Ot Z86.73 PRSNL HX OF TIA (TIA), AND CEREB INFRC W 12/03/2018 BLUE BEST Ot Z88.2 ALLERGY STATUS TO SULFONAMIDES STATUS 12/03/2018 NASIR BLUE Ot Z88.5 ALLERGY STATUS TO NARCOTIC AGENT STATUS 12/03/2018 DANYELLDOUGLAS BLUE Ot Z88.8 ALLERGY STATUS TO OTH DRUG/MEDS/BIOL SUB 12/03/2018 MYRA BESTIS Ot Z91.041 RADIOGRAPHIC DYE ALLERGY STATUS 12/03/2018 MYRA BESTIS Ot 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 PACEMAKER 12/05/2018 NASIR BLUE Ot G40.909 EPILEPSY, UNSP, NOT INTRACTABLE, WITHOUT 12/05/2018 MYRA BESTIS Ot S00.83XA CONTUSION OF OTHER PART OF HEAD, INITIAL 12/05/2018 MYRA BESTIS Ot W07.XXXA FALL FROM CHAIR, INITIAL ENCOUNTER 12/05/2018 NASIRMYRAIS Ot W22.09XA STRIKING AGAINST OTHER STATIONARY OBJECT 12/05/2018 MYRA BESTIS Ot Z79.82 FDC (CURRENT) USE OF ASPIRIN 12/05/2018 NASIR BLUE Ot Z86.73 PRSNL HX OF TIA (TIA), AND CEREB INFRC W 12/05/2018 NASIR BLUE Ot Z88.2 ALLERGY STATUS TO SULFONAMIDES STATUS 12/05/2018 DANYELLDOUGLAS BLUE Ot Z88.5 ALLERGY STATUS TO NARCOTIC AGENT STATUS 12/05/2018 NASIR BLUE Ot Z88.8 ALLERGY STATUS TO OTH DRUG/MEDS/BIOL SUB 12/05/2018 MYRA BESTIS Ot Z91.041 RADIOGRAPHIC DYE ALLERGY STATUS 12/05/2018 DANYELLDOUGLAS BLUE Ot 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 PACEMAKER 01/06/2019 KHALIF WYLIE, KARIN Meeks Ot G40.909 EPILEPSY, UNSP, NOT INTRACTABLE, WITHOUT 01/06/2019 KHALIF WYLIE, KARIN Meeks Ot M25.551 PAIN IN RIGHT HIP 01/06/2019 [...] SNGL 01/06/2019 KARIN CUADRA MD Ot Z79.82 MOTION PICTURE CAMERAMAN (CURRENT) USE OF ASPIRIN 01/06/2019 KARIN CUADRA MD Ot Z85.828 PERSONAL HISTORY OF OTHER MALIGNANT NEOP 01/06/2019 KARIN CUADRA MD Ot Z86.73 PRSNL HX OF TIA (TIA), AND CEREB INFRC W 01/06/2019 KARIN CUADRA MD, Ot Z88.2 ALLERGY STATUS TO SULFONAMIDES STATUS 01/06/2019 KARIN CUADRA MD Ot Z88.5 ALLERGY STATUS TO NARCOTIC AGENT STATUS 01/06/2019 KARIN CUADRA MD, Ot Z88.8 ALLERGY STATUS [...] FROM SLIP/TRIP W/O STRIKE 01/08/2019 KARIN CUADRA MD, Ot Y92.002 BATHRM OF UNSP NON-INSTITUT RESDNCE SNGL 01/08/2019 KARIN CUADRA MD, Ot Z79.82 FDC (CURRENT) USE OF ASPIRIN 01/08/2019 KARIN CUADRA [...] Z91.81 HISTORY OF FALLING 01/08/2019 KARIN CUADRA MD, Ot 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 PACEMAKER 03/23/2019 EMIL SANTIAGO MD, Ot G40.909 EPILEPSY, UNSP, NOT INTRACTABLE, WITHOUT 03/23/2019 EMIL SANTIAGO MD Ot I48.91 UNSPECIFIED ATRIAL FIBRILLATION 03/23/2019 EMIL SANTIAGO MD, Ot J98.01 ACUTE BRONCHOSPASM 03/23/2019 EMIL SANTIAGO MD, Ot N39.0 URINARY TRACT INFECTION, SITE NOT SPECIF 03/23/2019 EMIL SANTIAGO MD, Ot R41.82 ALTERED MENTAL STATUS, UNSPECIFIED 03/23/2019 EMIL SANTIAGO MD, Ot Z79.01 FDC (CURRENT) USE OF ANTICOAGULANT 03/23/2019 EMIL SANTIAGO MD, Ot Z79.82 FDC (CURRENT) USE OF ASPIRIN 03/23/2019 EMIL SANTIAGO MD, Ot Z85.22 PRSNL HX OF MALIG NEOPLM OF [place], [place] 03/23/2019 EMIL SANTIAGO MD, Ot Z86.73 PRSNL HX OF TIA (TIA), AND CEREB INFRC W 03/23/2019 EMIL SANTIAGO MD Ot Z88.1 ALLERGY STATUS TO OTHER ANTIBIOTIC AGENT 03/23/2019 EMIL SANTIAGO MD Ot Z88.2 ALLERGY STATUS TO SULFONAMIDES STATUS 03/23/2019 EMIL SANTIAGO MD Ot Z88.5 ALLERGY STATUS TO NARCOTIC AGENT STATUS 03/23/2019 EMIL SANTIAGO MD Ot Z91.041 RADIOGRAPHIC DYE ALLERGY STATUS 03/23/2019 EMIL SANTIAGO MD Ot 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 PACEMAKER 03/25/2019 EMIL SANTIAGO MD Ot G40.909 EPILEPSY, UNSP, NOT INTRACTABLE, WITHOUT 03/25/2019 EMIL SANTIAGO MD Ot I48.91 UNSPECIFIED ATRIAL FIBRILLATION 03/25/2019 EMIL SANTIAGO MD Ot J98.01 ACUTE BRONCHOSPASM 03/25/2019 EMIL SANTIAGO MD Ot N39.0 URINARY TRACT INFECTION, SITE NOT SPECIF 03/25/2019 EMIL SANTIAGO MD Ot R41.82 ALTERED MENTAL STATUS, UNSPECIFIED 03/25/2019 EMIL SANTIAGO MD, Ot Z79.01 FDC (CURRENT) USE OF ANTICOAGULANT 03/25/2019 EMIL SANTIAGO MD Ot Z79.82 MOTION PICTURE CAMERAMAN (CURRENT) USE OF ASPIRIN 03/25/2019 EMIL SANTIAGO MD Ot Z85.22 PRSNL HX OF MALIG NEOPLM OF [place], [place] 03/25/2019 EMIL SANTIAGO MD Ot Z86.73 PRSNL HX OF TIA (TIA), AND CEREB INFRC W 03/25/2019 EMIL SANTIAGO MD, Ot Z88.1 ALLERGY STATUS TO OTHER ANTIBIOTIC AGENT 03/25/2019 EMIL SANTIAGO MD Ot Z88.2 ALLERGY STATUS TO SULFONAMIDES STATUS 03/25/2019 EMIL SANTIAGO MD Ot Z88.5 ALLERGY STATUS TO NARCOTIC AGENT STATUS 03/25/2019 EMIL SANTIAGO MD Ot Z91.041 RADIOGRAPHIC DYE ALLERGY STATUS 03/25/2019 EMIL SANTIAGO MD Ot 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 PACEMAKER 03/25/2019 JOSS VILLARREAL APRN Ot G40.909 EPILEPSY, UNSP, NOT INTRACTABLE, WITHOUT 03/25/2019 JOSS VILLARREAL APRN Ot I48.91 UNSPECIFIED ATRIAL FIBRILLATION 03/25/2019 JOSS VILLARREAL APRN Ot K64.9 UNSPECIFIED HEMORRHOIDS 03/25/2019 JOSS VILLARREAL APRN Ot Z79.82 MOTION PICTURE CAMERAMAN (CURRENT) USE OF ASPIRIN 03/25/2019 JOSS VILLARREAL APRN Ot Z85.59 PERSONAL HISTORY OF MALIG NEOPLASM OF [place] 03/25/2019 JOSS VILLARREAL APRN Ot Z86.73 PRSNL HX OF TIA (TIA), AND CEREB INFRC W 03/25/2019 JOSS VILLARREAL APRN Ot Z88.1 ALLERGY STATUS TO OTHER ANTIBIOTIC AGENT 03/25/2019 JOSS VILLARREAL APRN Ot Z88.2 ALLERGY STATUS TO SULFONAMIDES STATUS 03/25/2019 JOSS VILLARREAL APRN Ot Z88.5 ALLERGY STATUS TO NARCOTIC AGENT STATUS 03/25/2019 JOSS VILLARREAL APRN Ot Z91.041 RADIOGRAPHIC DYE ALLERGY STATUS 03/25/2019 JOSS VILLARREAL APRN Ot 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 PACEMAKER 03/28/2019 JOSS VILLARREAL APRN Ot G40.909 EPILEPSY, UNSP, NOT INTRACTABLE, WITHOUT 03/28/2019 JOSS VILLARREAL APRN Ot I48.91 UNSPECIFIED ATRIAL FIBRILLATION 03/28/2019 JOSS VILLARREAL APRN Ot K64.9 UNSPECIFIED HEMORRHOIDS 03/28/2019 JOSS VILLARREAL APRN Ot Z79.82 MOTION PICTURE CAMERAMAN (CURRENT) USE OF ASPIRIN 03/28/2019 JOSS VILLARREAL APRN Ot Z85.59 PERSONAL HISTORY OF MALIG NEOPLASM OF UR 03/28/2019 JOSS VILLARREAL APRN Ot Z86.73 PRSNL HX OF TIA (TIA), AND CEREB INFRC W 03/28/2019 JOSS VILLARREAL APRN Ot Z88.1 ALLERGY STATUS TO OTHER ANTIBIOTIC AGENT 03/28/2019 JOSS VILLARREAL APRN Ot Z88.2 ALLERGY STATUS TO SULFONAMIDES STATUS 03/28/2019 JOSS VILLARREAL APRN Ot Z88.5 ALLERGY STATUS TO NARCOTIC AGENT STATUS 03/28/2019 JOSS VILLARREAL APRN Ot Z91.041 RADIOGRAPHIC DYE ALLERGY STATUS 03/28/2019 VILLARREALJOSS ORE GRADER Ot 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 PACEMAKER Procedures [...] culture YES NRG Bacterial urine culture - 01/06/19 10:39 Bacterial urine culture [id number] NRG COLONY COUNT >100,000/ML NRG FTX;REPORTABLE SEE COMMENTS NRG Complete blood count (CBC) with automated white [...] culture - 03/23/19 15:15 Bacterial urine culture SEE COMMEN NRG COLONY COUNT . NRG FTX;REPORTABLE NO FURTHER TESTING NRG Complete blood count (CBC) with automated white blood cell (WBC) differential - 03/25/19 12:35 Blood leukocytes automated count (number/volume) 8.2 10*3/uL 4.3-11.0 Blood erythrocytes automated count (number/volume) 4.55 10*6/uL 4.35-5.85 Venous blood hemoglobin measurement (mass/volume) 14.0 g/dL 11.5-16.0 Blood hematocrit (volume fraction) 43 % 35-52 Automated erythrocyte mean corpuscular volume 94 [foz_us] 80-99 Automated erythrocyte mean corpuscular hemoglobin (mass per erythrocyte) 31 pg 25-34 Automated erythrocyte mean corpuscular hemoglobin concentration measurement (mass/volume) 33 g/dL 32-36 Automated erythrocyte distribution width ratio 14.2 % 10.0- 14.5 Automated blood platelet count (count/volume) 254 10*3/uL 130-400 Automated blood platelet mean volume measurement 8.9 [foz_us] 7.4-10.4 Automated blood neutrophils/100 leukocytes 64 % 42-75 Automated blood lymphocytes/100 leukocytes 22 % 12-44 Blood monocytes/100 leukocytes 10 % 0-12 Automated blood eosinophils/100 leukocytes 4 % 0-10 Automated blood basophils/100 leukocytes 0 % 0-10 Blood neutrophils automated count (number/volume) 5.2 10*3 1.8-7.8 Blood lymphocytes automated count (number/volume) 1.8 10*3 1.0-4.0 Blood monocytes automated count (number/volume) 0.8 10*3 0.0- 1.0 Automated eosinophil count 0.3 10*3/uL 0.0-0.3 Automated blood basophil count (count/volume) 0.0 10*3/uL 0.0-0.1 Comprehensive metabolic panel - 03/25/19 12:35 Serum or plasma sodium measurement (moles/volume) 132 mmol/L 135-145 Serum or plasma potassium measurement (moles/volume) 4.3 mmol/L 3.6-5.0 Serum or plasma chloride measurement (moles/volume) 93 mmol/L 98-107 Carbon dioxide 28 mmol/L 21-32 Serum or plasma anion gap determination (moles/volume) 11 mmol/L 5-14 Serum or plasma urea nitrogen measurement (mass/volume) 15 mg/dL 7-18 Serum or plasma creatinine measurement (mass/volume) 0.72 mg/dL 0.60-1.30 Serum or plasma urea nitrogen/creatinine mass ratio 21 NRG Serum or plasma creatinine measurement with calculation of estimated glomerular filtration rate > NRG Serum or plasma glucose measurement (mass/volume) 92 mg/dL 70-105 Serum or plasma calcium measurement (mass/volume) 9.7 mg/dL 8.5-10.1 Serum or plasma total bilirubin measurement (mass/volume) 0.4 mg/dL 0.1-1.0 Serum or plasma alkaline phosphatase measurement (enzymatic activity/volume) 104 U/L 40-136 Serum or plasma aspartate aminotransferase measurement (enzymatic activity/volume) 23 U/L 5-34 Serum or plasma alanine aminotransferase measurement (enzymatic activity/volume) 19 U/L 0-55 Serum or plasma protein measurement (mass/volume) 7.5 g/dL 6.4-8.2 Serum or plasma albumin measurement (mass/volume) 3.8 g/dL 3.2-4.5 CALCIUM CORRECTED 9.9 mg/dL 8.5-10.1 Encounters ACCT No. Visit Date/Time Discharge Status Pt. Type Provider Facility Loc./Unit Complaint [id number] 03/25/2019 11:32:00 03/25/2019 13:39:00 DIS Emergency JOSS VILLARREAL APRN [facility] ER HEMORRID PROBLEM [id number] 03/23/2019 14:25:00 03/23/2019 16:56:00 DIS Emergency EMIL SANTIAGO MD [facility] ER STROKE LIKE SYMPTOMS [id number] 01/06/2019 10:09:00 01/06/2019 13:05:00 DIS Emergency KARIN CUADRA MD [facility] ER FALL [id number] 12/03/2018 14:19:00 12/03/2018 17:10:00 DIS Emergency BLUE BEST [facility] ER FALL [id number] 01/01/2016 08:59:00 Document Registration
--- NOTE | 2019-05-11 00:31 | ED Cardiac General ---
History of Present Illness General Chief Complaint: Cardiac/General Problems Stated Complaint: BLOOD PRESSURE CONCERNS Source: patient, family (daughter and stepson) Exam Limitations: no limitations History of Present Illness Date Seen by Provider: May 11, 2019 Time Seen by Provider: 00:15 Initial Comments Patient presents to the ER by private conveyance from [facility] with chief complaint that nursing staff checked on her checked her blood pressure and said it was 86/68. No mention of a heart rate. No fever chills nausea vomiting chest pain shortness of breath. The patient has no current concerns. She recently moved there because she had a fall home and was not wearing her life alert dependent and was found down in 16 hours several weeks ago. She got out of [facility] a week ago Sunday for a UTI and is still on cefdinir. Patient denies any new acute issues. Family says that the staff noted she was eating good breakfast this morning but kind of out of it this afternoon and not wanting to talk or eat very well for lunch so they went over specimen time with her and said that she sat up and talked with them normally until about 8:30 at night and then they left for the evening. They have not noticed anything unusual that they had seen here in the past few months that she has been going downhill rather rapidly. She did just have a visit with the neurologist in [place] a couple weeks ago and had Parkinson's and other neurologic degenerative disorders ruled out. She gets around by wheelchair and has to transfer with assistance at baseline for the past couple weeks. Allergies and Home Medications Allergies Coded Allergies: codeine (Unverified Allergy, Unknown, 01/01/16) hydrocodone (Unverified Allergy, Unknown, 01/01/16) iodine (Verified Allergy, Unknown, 01/01/16) sulfamethoxazole (Unverified Allergy, Unknown, 01/01/16) trimethoprim (Unverified Allergy, Unknown, 01/01/16) Uncoded Allergies: IV DYE (Allergy, Unknown, 01/01/16) Home Medications Aspirin 325 Mg Tablet.dr, 325 MG PO DAILY, (Reported) Calcium Carbonate/Vitamin D3 1 Each Tablet, 1 EACH PO DAILY, (Reported) Cephalexin 500 Mg Capsule, 500 MG PO TID Prescribed by: EMIL HERMAN on 03/23/19 4535 Dipyridamole/Aspirin 1 Ea Cap, 1 CAP PO BID Prescribed by: EMIL HERMAN on 01/01/16 1314 Docusate Sodium 100 Mg Capsule, 100 MG PO BID Prescribed by: JOSS VILLARREAL on 03/25/19 1244 Fish Oil/Dha/Epa 1 Each Capsule, 1 EACH PO DAILY, (Reported) Flecainide Acetate 100 Mg Tablet, 100 MG PO BID, (Reported) Hydralazine HCl 25 Mg Tablet, 25 MG PO BID, (Reported) Levothyroxine Sodium 75 Mcg Tablet, 75 MCG PO DAILY, (Reported) Mv-Mn/FA/Vit K/Lycop/Lut/Zeaxa 1 Each Tablet, 1 EACH PO DAILY, (Reported) Nitrofurantoin Monohyd/M-Cryst 100 Mg Capsule, 1 TAB PO BID Prescribed by: EMIL HERMAN on 01/01/16 1314 Phenobarbital 64.8 Mg Tablet, 129.6 MG PO HS, (Reported) Pravastatin Sodium 40 Mg Tablet, 40 MG PO DAILY, (Reported) Patient Home Medication List Home Medication List Reviewed: Yes Review of Systems Review of Systems Constitutional: No chills, No diaphoresis, No fever, No malaise EENTM: No Blurred Vision, No Double Vision Respiratory: Denies Cough, Denies Orthopnea Cardiovascular: Denies Chest Pain, Denies Lightheadedness Gastrointestinal: Denies Constipated, Denies Diarrhea Genitourinary: Denies Discharge, Denies Drainage Musculoskeletal: No back pain, No joint pain Past Dntznyt-Kskmsu-Ifytpm Hx Patient Social History Alcohol Use: Denies Use Recreational Drug Use: No Smoking Status: Never a Smoker 2nd Hand Smoke Exposure: No Recent Foreign Travel: No Contact w/Someone Who Travel: No Immunizations Up To Date Tetanus Booster (TDap): Less than 5yrs Past Medical History Surgeries: Yes (pacemaker/knee replacement/nose surgery (cancer)) Joint Replacement, Pacemaker Respiratory: No Cardiac: Yes (has pacemaker for treatment of bradycardia) Atrial Fibrillation, Irregular Heartbeat Neurological: Yes Seizure Disorder, TIA Reproductive Disorders: No Genitourinary: No Gastrointestinal: No Musculoskeletal: Yes Arthritis Endocrine: No HEENT: No Cancer: Yes (nose) Psychosocial: No Integumentary: No Blood Disorders: No Physical Exam Vital Signs Vital Signs - First Documented 05/11/19 00:04 Temp 97.5 Pulse 77 Resp 18 B/P (MAP) 110/65 (80) Capillary Refill : Height, Weight, BMI Height: 4'10.00" Weight: 140lbs. oz. 63.796673sg; BMI Method:Stated General Appearance: No Apparent Distress, WD/WN HEENT: Pharynx Normal, Moist Mucous Membranes Neck: Full Range of Motion, Normal Inspection Respiratory: Lungs Clear, Normal Breath Sounds, No Accessory Muscle Use, No Respiratory Distress Cardiovascular: Regular Rate, Rhythm, No Edema, No Murmur, Normal Peripheral Pulses Gastrointestinal: Normal Bowel Sounds, Non Tender, Soft Neurologic/Psychiatric: Alert, Oriented x3 Skin: Normal Color, Warm/Dry Progress/Results/Core Measures Results/Orders Lab Results Laboratory Tests Test 05/11/19 00:14 05/11/19 00:22 Range/Units White Blood Count 9.0 4.3-11.0 10^3/uL Red Blood Count 4.66 4.35-5.85 10^6/uL Hemoglobin 14.3 11.5-16.0 G/DL Hematocrit 43 35-52 % Mean Corpuscular Volume 93 80-99 FL Mean Corpuscular Hemoglobin 31 25-34 PG Mean Corpuscular Hemoglobin Concent 33 32-36 G/DL Red Cell Distribution Width 15.2 H 10.0-14.5 % Platelet Count 305 130-400 10^3/uL Mean Platelet Volume 9.1 7.4-10.4 FL Neutrophils (%) (Auto) 64 42-75 % Lymphocytes (%) (Auto) 20 12-44 % Monocytes (%) (Auto) 12 0-12 % Eosinophils (%) (Auto) 4 0-10 % Basophils (%) (Auto) 0 0-10 % Neutrophils # (Auto) 5.8 1.8-7.8 X 10^3 Lymphocytes # (Auto) 1.8 1.0-4.0 X 10^3 Monocytes # (Auto) 1.1 H 0.0-1.0 X 10^3 Eosinophils # (Auto) 0.4 H 0.0-0.3 10^3/uL Basophils # (Auto) 0.0 0.0-0.1 10^3/uL Sodium Level 133 L 135-145 MMOL/L Potassium Level 5.8 H 3.6-5.0 MMOL/L Chloride Level 96 L 98-107 MMOL/L Carbon Dioxide Level 20 L 21-32 MMOL/L Anion Gap 17 H 5-14 MMOL/L Blood Urea Nitrogen 18 7-18 MG/DL Creatinine 0.83 0.60-1.30 MG/DL Estimat Glomerular Filtration Rate > 60 BUN/Creatinine Ratio 22 Glucose Level 88 70-105 MG/DL Calcium Level 9.3 8.5-10.1 MG/DL Corrected Calcium 9.8 8.5-10.1 MG/DL Total Bilirubin 0.3 0.1-1.0 MG/DL Aspartate Amino Transf (AST/SGOT) 44 H 5-34 U/L Alanine Aminotransferase (ALT/SGPT) 25 0-55 U/L Alkaline Phosphatase 133 40-136 U/L C-Reactive Protein High Sensitivity 3.76 H 0.00-0.50 MG/DL Total Protein 8.1 6.4-8.2 GM/DL Albumin 3.4 3.2-4.5 GM/DL Urine Color YELLOW Urine Clarity CLEAR Urine pH 6.5 5-9 Urine Specific [place] 1.010 L 1.016-1.022 Urine Protein 1+ H NEGATIVE Urine Glucose (UA) NEGATIVE NEGATIVE Urine Ketones NEGATIVE NEGATIVE Urine Nitrite NEGATIVE NEGATIVE Urine Bilirubin NEGATIVE NEGATIVE Urine Urobilinogen NORMAL NORMAL MG/DL Urine Leukocyte Esterase NEGATIVE NEGATIVE Urine RBC (Auto) NEGATIVE NEGATIVE Urine RBC NONE /HPF Urine WBC NONE /HPF Urine Squamous Epithelial Cells RARE /HPF Urine Crystals NONE /LPF Urine Bacteria NEGATIVE /HPF Urine Casts PRESENT /LPF Urine Hyaline Casts RARE /LPF Urine Mucus NEGATIVE /LPF Urine Culture Indicated NO My Orders Orders - KARIN CUADRA Straight Cath For Spec.-Adult (05/11/19 00:27) Cbc With Automated Diff (05/11/19 00:27) Comprehensive Metabolic Panel (05/11/19 00:27) Hs C Reactive Protein (05/11/19 00:27) Continuous Ekg Monitoring (05/11/19 00:27) Ekg Tracing (05/11/19 00:27) Chest 1 View, Ap/Pa Only (05/11/19 00:27) Ua Culture If Indicated (05/11/19 00:51) Vital Signs/I&O 05/11/19 00:04 Temp 97.5 Pulse 77 Resp 18 B/P (MAP) 110/65 (80) Progress Progress Note #1: Time: 00:59 Progress Note Spurious low blood pressure with no certain reason why it was taken at that time that is not repeated on initial intake. We'll keep her on the monitor in EKG check some basic labs and chest x-ray as well as a straight catheter. The patient has no current complaints. She is in A. fib does not take blood thinners because of a history of falls and is on flecainide. Progress Note #2: Time: 01:47 Progress Note Labs are okay. She has a known history of hyponatremia. Urine is clean and she still on cefdinir for another couple days. Patient's vital signs been completely normal since she's been here. She has no complaints currently. We'll going to allow her to go home get some sleep. Initial ECG Impression Date: May 11, 2019 Initial ECG Impression Time: 00:36 Initial ECG Rate: 79 Initial ECG Rhythm: A Fib/Flutter Initial ECG Intervals: Normal Initial ECG Impression: Atrial Fibrillation Comment Patient fibrillation without ventricular response. Pacemaker in place. Diagnostic Imaging Diagonstic Imaging: Xray Plain Films/CT/US/NM/MRI: chest (1v) Comments No acute cardiopulmonary process noted on one view chest x-ray. Unchanged from March 26, 2019. Reviewed: Reviewed by Me Departure Impression Primary Impression: General medical examination Disposition: HOME, SELF-CARE Condition: Stable Departure-Patient Inst. Decision time for Depature: 01:48 Referrals: NO,LOCAL PHYSICIAN (PCP/Family) Primary Care Physician Patient Instructions: NO INSTRUCTIONS GIVEN Add. Discharge Instructions: Go home and get some sleep. Follow-up with primary care as necessary. If you have any pressing concerns please return to the ER. Please stop checking vital signs after hours unless the patient has concerns or symptoms. All discharge instructions reviewed with patient and/or family. Voiced understanding. KARIN CUADRA May 11, 2019 00:31
[2019-05-11 00:34] LABS: BASOPHILS % (AUTO) 0 % (0-10); EOSINOPHILS # (AUTO) 0.4 10^3/uL (0.0-0.3); EOSINOPHILS % (AUTO) 4 % (0-10); HEMATOCRIT 43 % (35-52); HEMOGLOBIN 14.3 G/DL (11.5-16.0); LYMPHOCYTES # (AUTO) 1.8 X 10^3 (1.0-4.0); LYMPHOCYTES % (AUTO) 20 % (12-44); MEAN CORPUSCULAR HEMOGLOBIN 31 PG (25-34); MEAN CORPUSCULAR HGB CONC 33 G/DL (32-36); MEAN CORPUSCULAR VOLUME 93 FL (80-99); MEAN PLATELET VOLUME 9.1 FL (7.4-10.4); MONOCYTES # (AUTO) 1.1 X 10^3 (0.0-1.0); MONOCYTES % (AUTO) 12 % (0-12); NEUTROPHILS # (AUTO) 5.8 X 10^3 (1.8-7.8); NEUTROPHILS % (AUTO) 64 % (42-75); PLATELET COUNT 305 10^3/uL (130-400); RED CELL DISTRIBUTION WIDTH 15.2 % (10.0-14.5)
[2019-05-11 00:47] LABS: ALANINE AMINOTRANSFERASE 25 U/L (0-55); ALBUMIN 3.4 GM/DL (3.2-4.5); ALKALINE PHOSPHATASE 133 U/L (40-136); BILIRUBIN,TOTAL 0.3 MG/DL (0.1-1.0); BUN/CREATININE RATIO 22; CALCIUM 9.3 MG/DL (8.5-10.1); CARBON DIOXIDE 20 MMOL/L (21-32); CHLORIDE 96 MMOL/L (98-107); CREATININE SERUM 0.83 MG/DL (0.60-1.30); GFR ESTIMATED > 60; GLUCOSE 88 MG/DL (70-105); POTASSIUM 5.8 MMOL/L (3.6-5.0); SODIUM 133 MMOL/L (135-145); TOTAL PROTEIN 8.1 GM/DL (6.4-8.2)
[2019-05-11 01:24] LABS: CLARITY,URINE CLEAR; COLOR,URINE YELLOW; PH,URINE 6.5 (5-9)
[2019-05-11 01:25] LABS: BACTERIA,URINE NEGATIVE /HPF; BILIRUBIN,URINE NEGATIVE (NEGATIVE); GLUCOSE, URINE (UA) NEGATIVE (NEGATIVE); HYALINE CASTS, URINE RARE /LPF; KETONES,URINE NEGATIVE (NEGATIVE); LEUKOCYTE ESTERASE ,URINE NEGATIVE (NEGATIVE); NITRITE,URINE NEGATIVE (NEGATIVE); PROTEIN,URINE 1+ (NEGATIVE); SQUAMOUS EPITHELIAL CELL,UR RARE /HPF; UROBILINOGEN,URINE NORMAL (NORMAL)
[2019-05-11 01:58] VITALS: BP 124/78
--- NOTE | 2019-05-11 06:22 | Diagnostic Imaging Report ---
EXAMINATION: Portable erect AP chest at 1236 AM INDICATION: Chest pain The cardiomegaly and the left-sided pacemaker seen on the prior exam of 03/25/2019 are again evident and no different. The lungs remain clear. There is still no evidence for failure, pneumonia or a pleural effusion. The tortuous descending thoracic aorta seen previously is again visualized. The mediastinum is not widened. The osseous structures are intact. IMPRESSION: There is cardiomegaly but there is no evidence for an acute cardiopulmonary abnormality. Dictated by: Dictated on workstation # [id number]
== END 2019-05-11 01:59 | disposition home or self-care (01) ==
LOC: EDUNIT# 23:41 → ER 23:43
DX: R03.1 Nonspecific low blood-pressure reading (principal); I48.91 Unspecified atrial fibrillation; G40.909 Epilepsy, unspecified, not intractable, without status epilepticus; Z86.73 Personal history of transient ischemic attack (TIA), and cerebral infarction without residual deficits; Z88.5 Allergy status to narcotic agent; Z88.2 Allergy status to sulfonamides; Z88.1 Allergy status to other antibiotic agents; Z91.041 Radiographic dye allergy status; Z79.82 Long term (current) use of aspirin; Z95.0 Presence of cardiac pacemaker; Z85.89 Personal history of malignant neoplasm of other organs and systems
CPT/HCPCS: 36415; 51701; 71045; 80053; 81000; 85025; 86141; 93005

== ENCOUNTER 2019-05-23 12:01 | Emergency (ER) | payer MEDICARE, OTHER | END 2019-05-23 14:30 | disposition home or self-care (01) | LOC: ER 12:01 ==

== ENCOUNTER 2019-05-31 12:29 | Observation (INO) | payer MEDICARE, OTHER ==
[~2019-05-31] VITALS: Ht 147.3 cm; Wt 68.9 kg
[~2019-05-31 12:29] MED LIST changes: +CEFD300C3 PO
[2019-05-31 12:56] LABS: BASOPHILS % (AUTO) 0 % (0-10); EOSINOPHILS # (AUTO) 0.2 10^3/uL (0.0-0.3); EOSINOPHILS % (AUTO) 2 % (0-10); HEMATOCRIT 44 % (35-52); HEMOGLOBIN 14.5 G/DL (11.5-16.0); LYMPHOCYTES # (AUTO) 2.2 X 10^3 (1.0-4.0); LYMPHOCYTES % (AUTO) 22 % (12-44); MEAN CORPUSCULAR HEMOGLOBIN 31 PG (25-34); MEAN CORPUSCULAR HGB CONC 33 G/DL (32-36); MEAN CORPUSCULAR VOLUME 92 FL (80-99); MEAN PLATELET VOLUME 9.3 FL (7.4-10.4); MONOCYTES # (AUTO) 0.8 X 10^3 (0.0-1.0); MONOCYTES % (AUTO) 8 % (0-12); NEUTROPHILS # (AUTO) 6.6 X 10^3 (1.8-7.8); NEUTROPHILS % (AUTO) 68 % (42-75); PLATELET COUNT 248 10^3/uL (130-400); RED CELL DISTRIBUTION WIDTH 14.9 % (10.0-14.5); WHITE BLOOD COUNT 9.7 10^3/uL (4.3-11.0)
[2019-05-31] MEDS ORDERED: NS IV 1000 ML 1,000 ML ONE (12:56)
[2019-05-31 12:57] LABS: BILIRUBIN,URINE NEGATIVE (NEGATIVE); CLARITY,URINE CLEAR; COLOR,URINE YELLOW; GLUCOSE, URINE (UA) 2+ (NEGATIVE); KETONES,URINE NEGATIVE (NEGATIVE); LEUKOCYTE ESTERASE ,URINE NEGATIVE (NEGATIVE); NITRITE,URINE NEGATIVE (NEGATIVE); PH,URINE 7 (5-9); PROTEIN,URINE 2+ (NEGATIVE); UROBILINOGEN,URINE NORMAL (NORMAL)
[2019-05-31 12:57] LABS: ABG BASE EXCESS 1.1 MMOL/L (-2.5-2.5); ABG OXYGEN SATURATION 99 % (94-100); ABG PCO2 42 MMHG (35-45); ABG PO2 121 MMHG (79-93); ABG TCO2 26.9 MMOL/L (21.0-31.0)
[2019-05-31 12:59] LABS: ALLENS TEST YES-POS; INSPIRED O2 2 L.; PATIENT TEMP 96.9; VENTILATOR NO
--- NOTE | 2019-05-31 12:59 | ED Neurological Problem ---
General Chief Complaint: Unresponsive Stated Complaint: UNRESPONSIVE Nursing Triage Note: PT BROUGHT IN BY [facility] FROM [facility] FOR UNRESPONIVE. PT WAS TAKEN STRAIGHT TO CT SCAN UPON ARRIVAL. PT CONTINUES TO BE UNRESPONSIVE ON ARRIVAL TO ED. PT WAS RECENTLY TREATED FOR UTI. Nursing Sepsis Screen: No Definite Risk Source: patient, family Exam Limitations: no limitations History of Present Illness Date Seen by Provider: May 31, 2019 Time Seen by Provider: 12:28 Initial Comments Patient arrives by EMS from [facility] with chief complaint that she was unable to be woke up by staff found at 11:30. Last known well time was 929 when she laid down for a nap. 3 days ago on Sunday she was here in the ER and diagnosed with UTI and put on outpatient antibiotics. Patient was unresponsive to painful stimuli per EMS. No known history of A. fib or blood thinners. Medication list did not accompany her. Her granddaughters arrived and really a history that she does have a history of hyponatremia and sometimes will become unresponsive like this. They deny that she uses any benzos or pain medications. They reinforce that the patient is a DO NOT RESUSCITATE. Primary care doctor is in [place], [place]. Allergies and Home Medications Allergies Coded Allergies: codeine (Unverified Allergy, Unknown, 01/01/16) hydrocodone (Unverified Allergy, Unknown, 01/01/16) iodine (Verified Allergy, Unknown, 01/01/16) sulfamethoxazole (Unverified Allergy, Unknown, 01/01/16) trimethoprim (Unverified Allergy, Unknown, 01/01/16) Uncoded Allergies: IV DYE (Allergy, Unknown, 01/01/16) Home Medications Aspirin 325 Mg Tablet.dr, 325 MG PO DAILY, (Reported) Calcium Carbonate/Vitamin D3 1 Each Tablet, 1 EACH PO DAILY, (Reported) Cefdinir 300 Mg Capsule, 300 MG PO BID Prescribed by: EMIL HERMAN on 05/23/19 1359 Cephalexin 500 Mg Capsule, 500 MG PO TID Prescribed by: EMIL HERMAN on 03/23/19 1646 Dipyridamole/Aspirin 1 Ea Cap, 1 CAP PO BID Prescribed by: EMIL HERMAN on 01/01/16 1314 Docusate Sodium 100 Mg Capsule, 100 MG PO BID Prescribed by: JOSS VILLARREAL on 03/25/19 1244 Fish Oil/Dha/Epa 1 Each Capsule, 1 EACH PO DAILY, (Reported) Flecainide Acetate 100 Mg Tablet, 100 MG PO BID, (Reported) Hydralazine HCl 25 Mg Tablet, 25 MG PO BID, (Reported) Levothyroxine Sodium 75 Mcg Tablet, 75 MCG PO DAILY, (Reported) Mv-Mn/FA/Vit K/Lycop/Lut/Zeaxa 1 Each Tablet, 1 EACH PO DAILY, (Reported) Nitrofurantoin Monohyd/M-Cryst 100 Mg Capsule, 1 TAB PO BID Prescribed by: EMIL HERMAN on 01/01/16 1314 Phenobarbital 64.8 Mg Tablet, 129.6 MG PO HS, (Reported) Pravastatin Sodium 40 Mg Tablet, 40 MG PO DAILY, (Reported) Patient Home Medication List Home Medication List Reviewed: Yes Review of Systems Review of Systems Constitutional: see HPI (patient unable to give any meaningful review of systems.) Past [id number] Hx Patient Social History Alcohol Use: Denies Use Recreational Drug Use: No Smoking Status: Never a Smoker 2nd Hand Smoke Exposure: No Recent Foreign Travel: No Contact w/Someone Who Travel: No Recent Infectious Disease Expo: No Recent Hopitalizations: No Immunizations Up To Date Tetanus Booster (TDap): Less than 5yrs Seasonal Allergies Seasonal Allergies: No Past Medical History Surgeries: Yes (pacemaker/knee replacement/nose surgery (cancer)) Joint Replacement, Pacemaker Respiratory: No Cardiac: Yes (has pacemaker for treatment of bradycardia) Atrial Fibrillation, Irregular Heartbeat Neurological: Yes Seizure Disorder, TIA Reproductive Disorders: No Genitourinary: No Gastrointestinal: No Musculoskeletal: Yes Arthritis Endocrine: No HEENT: No Cancer: Yes (nose) Psychosocial: No Integumentary: No Blood Disorders: No Physical Exam Vital Signs Vital Signs - First Documented 05/31/19 05/31/19 12:30 12:38 Temp 96.9 Pulse 83 Resp 19 B/P (MAP) 143/106 (118) Pulse Ox 92 O2 Delivery Room Air O2 Flow Rate 2.00 Capillary Refill : Less Than 3 Seconds Height, Weight, BMI Height: 4'10.00" Weight: 152lbs. oz. 68.849350na; BMI Method:Stated General Appearance: WD/WN, no apparent distress HEENT: PERRL/EOMI, normal ENT inspection, TMs normal, pharynx normal Neck: non-tender, full range of motion, supple, normal inspection Respiratory: chest non-tender, lungs clear, normal breath sounds, no respiratory distress, no accessory muscle use Cardiovascular: normal peripheral pulses, regular rate, rhythm, no edema Peripheral Pulses: 2+ Dorsalis Pedis (R), 2+ Left Dors-Pedis (L), 2+ Radial Pulses (R), 2+ Radial Pulses (L) Gastrointestinal: normal bowel sounds, non tender, soft Extremities: normal range of motion, non-tender, normal inspection, no pedal edema, no calf tenderness, normal capillary refill Neurologic/Psychiatric: other (initial GCS 6. Obtunded,) Stroke Stroke Thrombolytic Exclusion History of CVA: No Severe Hypertension: No GI or Bleed: No Subarachnoid Hemorrhage: No Intracranial Neoplasm/Aneurysm: No Puncture of Non-Compressible V: No Recent CPR: No Diabetic Hemorrhagic Retinopat: No Focused Exam Lactate Level 05/31/19 12:45: Lactic Acid Level 1.21 Lactic Acid Level Laboratory Tests Test 05/31/19 12:45 Lactic Acid Level 1.21 MMOL/L (0.50-2.00) Progress/Results/Core Measures Results/Orders Lab Results Laboratory Tests Test 05/31/19 12:40 05/31/19 12:45 05/31/19 12:46 05/31/19 12:49 Range/Units White Blood Count 9.7 4.3-11.0 10^3/uL Red Blood Count 4.74 4.35-5.85 10^6/uL Hemoglobin 14.5 11.5-16.0 G/DL Hematocrit 44 35-52 % Mean Corpuscular Volume 92 80-99 FL Mean Corpuscular Hemoglobin 31 25-34 PG Mean Corpuscular Hemoglobin Concent 33 32-36 G/DL Red Cell Distribution Width 14.9 H 10.0-14.5 % Platelet Count 248 130-400 10^3/uL Mean Platelet Volume 9.3 7.4-10.4 FL Neutrophils (%) (Auto) 68 42-75 % Lymphocytes (%) (Auto) 22 12-44 % Monocytes (%) (Auto) 8 0-12 % Eosinophils (%) (Auto) 2 0-10 % Basophils (%) (Auto) 0 0-10 % Neutrophils # (Auto) 6.6 1.8-7.8 X 10^3 Lymphocytes # (Auto) 2.2 1.0-4.0 X 10^3 Monocytes # (Auto) 0.8 0.0-1.0 X 10^3 Eosinophils # (Auto) 0.2 0.0-0.3 10^3/uL Basophils # (Auto) 0.0 0.0-0.1 10^3/uL Prothrombin Time 14.2 12.2-14.7 SEC INR Comment 1.1 0.8-1.4 Activated Partial Thromboplast Time 36 H 24-35 SEC D-Dimer 1.20 H 0.00-0.49 UG/ML Sodium Level 127 L 135-145 MMOL/L Potassium Level 5.1 H 3.6-5.0 MMOL/L Chloride Level 92 L 98-107 MMOL/L Carbon Dioxide Level 24 21-32 MMOL/L Anion Gap 11 5-14 MMOL/L Blood Urea Nitrogen 20 H 7-18 MG/DL Creatinine 1.15 0.60-1.30 MG/DL Estimat Glomerular Filtration Rate 45 BUN/Creatinine Ratio 17 Glucose Level 326 H 70-105 MG/DL Calcium Level 8.2 L 8.5-10.1 MG/DL Corrected Calcium 8.7 8.5-10.1 MG/DL Total Bilirubin 0.5 0.1-1.0 MG/DL Aspartate Amino Transf (AST/SGOT) 31 5-34 U/L Alanine Aminotransferase (ALT/SGPT) 17 0-55 U/L Alkaline Phosphatase 130 40-136 U/L Troponin I < 0.028 <0.028 NG/ML Total Protein 7.2 6.4-8.2 GM/DL Albumin 3.4 3.2-4.5 GM/DL Glucometer 309 H 70-110 MG/DL Lactic Acid Level 1.21 0.50-2.00 MMOL/L Blood Gas Puncture Site L.RADIAL Blood Gas Patient Temperature 96.9 Arterial Blood pH 7.40 7.37-7.43 Arterial Blood Partial Pressure CO2 42 35-45 MMHG Arterial Blood Partial Pressure O2 121 H 79-93 MMHG Arterial Blood HCO3 26 23-27 MMOL/L Arterial Blood Total CO2 26.9 21.0-31.0 MMOL/L Arterial Blood Oxygen Saturation 99 94-100 % Arterial Blood Base Excess 1.1 -2.5-2.5 MMOL/L Rivera Test YES-POS Blood Gas Ventilator Setting NO Blood Gas Inspired Oxygen 2 L. Urine Color YELLOW Urine Clarity CLEAR Urine pH 7 5-9 Urine Specific [place] 1.010 L 1.016-1.022 Urine Protein 2+ H NEGATIVE Urine Glucose (UA) 2+ H NEGATIVE Urine Ketones NEGATIVE NEGATIVE Urine Nitrite NEGATIVE NEGATIVE Urine Bilirubin NEGATIVE NEGATIVE Urine Urobilinogen NORMAL NORMAL MG/DL Urine Leukocyte Esterase NEGATIVE NEGATIVE Urine RBC (Auto) NEGATIVE NEGATIVE Urine RBC 0-2 /HPF Urine WBC 0-2 /HPF Urine Squamous Epithelial Cells RARE /HPF Urine Crystals NONE /LPF Urine Bacteria NEGATIVE /HPF Urine Casts PRESENT /LPF Urine Hyaline Casts 5-10 H /LPF Urine Mucus NEGATIVE /LPF Urine Culture Indicated NO Urine Opiates Screen NEGATIVE NEGATIVE Urine Oxycodone Screen NEGATIVE NEGATIVE Urine Methadone Screen NEGATIVE NEGATIVE Urine Propoxyphene Screen NEGATIVE NEGATIVE Urine Barbiturates Screen POSITIVE H NEGATIVE Ur Tricyclic Antidepressants Screen NEGATIVE NEGATIVE Urine Phencyclidine Screen NEGATIVE NEGATIVE Urine Amphetamines Screen NEGATIVE NEGATIVE Urine Methamphetamines Screen NEGATIVE NEGATIVE Urine Benzodiazepines Screen NEGATIVE NEGATIVE Urine Cocaine Screen NEGATIVE NEGATIVE Urine Cannabinoids Screen NEGATIVE NEGATIVE My Orders Orders - KARIN CUADRA Ct Head Wo-R/O Stroke (05/31/19 ) Cbc With Automated Diff (05/31/19 12:41) Protime With Inr (05/31/19 12:41) Partial Thromboplastin Time (05/31/19 12:41) Comprehensive Metabolic Panel (05/31/19 12:41) Fibrin Degradation Products (05/31/19 12:41) Troponin I (05/31/19 12:41) Ua Culture If Indicated (05/31/19 12:41) Chest 1 View, Ap/Pa Only (05/31/19 12:41) Catheter(Urinary) Insert & Ass 03,15 (05/31/19 12:41) Ekg Tracing (05/31/19 12:41) Nothing By Mouth (05/31/19 Dinner) Accucheck Stat ONCE (05/31/19 12:41) Ed Iv/Invasive Line Start (05/31/19 12:41) Ed Iv/Invasive Line Start (05/31/19 12:41) Vital Signs Stroke Patient Q15M (05/31/19 12:41) O2 (05/31/19 12:41) Intake & Output 06,14,22 (05/31/19 12:41) Monitor-Rhythm Ecg Trace Only (05/31/19 12:41) Dysphagia Screening Tool (05/31/19 12:41) Lipid Panel (06/01/19 06:00) Arterial Blood Gas (05/31/19 12:46) Drug Screen Stat (Urine) (05/31/19 12:59) Blood Culture (05/31/19 12:59) Lactic Acid Analyzer (05/31/19 12:59) Ceftriaxone For Iv Use (Rocephin For I (05/31/19 13:00) Ed Iv/Invasive Line Start (05/31/19 13:01) Ns Iv 1000 Ml (Sodium Chloride 0.9%) (05/31/19 13:01) Ns Iv 1000 Ml (Sodium Chloride 0.9%) (05/31/19 12:56) Code/Resuscitation (05/31/19 13:15) Phenobarbital (05/31/19 13:19) Vital Signs/I&O 05/31/19 05/31/19 12:30 12:38 Temp 96.9 Pulse 83 Resp 19 B/P (MAP) 143/106 (118) Pulse Ox 92 98 O2 Delivery Room Air Nasal Cannula O2 Flow Rate 2.00 Blood Pressure Mean: 118 Progress Progress Note : Time: 13:02 Progress Note When the patient first arrived she was fairly within the window so we activated the stroke and took her to CT. There is no bleeding. She didn't noted enlarged ventricles which are likely chronic. Her blood sugar was 75 initially per EMS and had received 250 cc of D10 by the time she arrived. Repeat blood sugar was over 300. Patient had a GCS of 6 but did have reflex on touching her eyelash. We discussed with the daughter who is the power of roll cutter as well as a grandson and they agreed that her wishes would be allow natural /DO NOT RESUSCITATE. However if she needed to be intubated they would be okay with that. As we went in to intubate the patient to protect her airway the patient's potentially open her eyes and wound painful stimuli as well as reached from my hand so she is now GCS of 10. As she is protecting her airway and has transient alteration of consciousness delirium most likely from her recent diagnosis of UTI rises to the top of the differential. Blood cultures, lactate, Rocephin ordered. No present or history of lateralizing symptoms given. Another liter of saline for a total of 1500 cc including the D10 would bring her up above 20 mils liters per kilogram fluid bolus. Initial ECG Impression Date: May 31, 2019 Initial ECG Impression Time: 12:44 Initial ECG Rate: 77 Initial ECG Intervals: QT (530) Initial ECG Impression: Nonspecific Changes Initial ECG Comparisson: Unchanged Comment Pacer spikes, no clinically significant ST elevation or depression. There is nearly 1 block depression in lead V3 however after reviewing the EKG with cardiology Dr. Bradford we agreed this is not clinically significant acute EKG findings. Diagnostic Imaging Diagonstic Imaging: Xray Plain Films/CT/US/NM/MRI: chest (1v) Reviewed: Reviewed by Me Diagonstic Imaging: CT Plain Films/CT/US/NM/MRI: head Comments NAME: MAKAYLA POLANCO [facility] REC#: [id number] PT STATUS: REG ER : 1930 PHYSICIAN: KARIN CUADRA MD ADMIT DATE: 05/31/19/ER Draft Date of Exam:05/31/19 CT HEAD WO-R/O STROKE PROCEDURE: CT head wo r/o stroke. TECHNIQUE: Multiple contiguous axial images were obtained through the brain without the use of intravenous contrast. Auto Exposure Controls were utilized during the CT exam to meet ALARA standards for radiation dose reduction. DATE: May 31, 2019. COMPARISON: CT head March 23, 2019. INDICATION: 88-year-old female, stroke. Unresponsive. FINDINGS: There are prominent areas of low attenuation in the periventricular and subcortical white matter. These are nonspecific but may reflect advanced changes of chronic small vessel ischemic disease. There are areas of near CSF attenuation in the left periventricular matter which may relate to changes of encephalomalacia. There is also prominent low attenuation in the left occipital lobe which is near CSF attenuation. This is also unchanged since comparison exam and most likely relates to sequela of prior insult. There is mild proportional prominence of the ventricles and CSF spaces compatible with mild cerebral volume loss. There is a calcification in the left temporal lobe without adjacent low attenuation which is unchanged since comparison exam. This is also unchanged dating back to January 01, 2016. This is most compatible with benign etiology. There is no additional identified abnormal intracranial calcification. There is no mass effect or midline shift. There is no acute intracranial hemorrhage. There is no abnormal extra-axial fluid collection. The visualized portions of the paranasal sinuses, mastoid air cells and middle ears are well aerated. IMPRESSION: 1. No identified interval acute intracranial abnormality. 2. Probable extensive changes of chronic small vessel ischemic disease with changes of encephalomalacia in the left periventricular white matter and left occipital lobe. 3. Small calcification in the left temporal lobe is unchanged since at least December 2015 compatible with benign etiology. Dictated on workstation # [id number] Dict: 05/31/19 1243 Trans: 05/31/19 1301 [facility] [id number] Interpreted by: PK ROCHE MD Electronically signed by: Reviewed: Reviewed by Me Departure Communication (Admissions) Time/Spoke to Admitting Phy: 13:25 Discussed the case and she agrees to observe the patient on the floor and await the above the level. She agrees with normal saline at 100 mL an hour. Impression Primary Impression: Acute hypoactive delirium due to another medical condition Additional Impression: Hyponatremia Disposition: ADMITTED INPATIENT Condition: Stable Admissions Decision to Admit Reason: Admit from ER (General) Decision to Admit/Date: May 31, 2019 Time/Decision to Admit Time: 13:20 Departure-Patient Inst. Referrals: NO,LOCAL PHYSICIAN (PCP/Family) Primary Care Physician KARIN CUADRA May 31, 2019 12:59
[2019-05-31] MEDS ORDERED: cefTRIAXone FOR IV USE 1,000 MG in WATER (STERILE) FOR INJECTION 10 ML IV ONE (13:00)
[2019-05-31] MEDS ORDERED: NS IV 1000 ML 1,000 ML IV SCH (13:01)
[2019-05-31 13:07] LABS: FIBRIN DEGRADATION PRODUCTS 1.2 UG/ML (0.00-0.49); INR 1.1 (0.8-1.4); PROTHROMBIN TIME PATIENT 14.2 SEC (12.2-14.7)
[2019-05-31 13:09] LABS: BACTERIA,URINE NEGATIVE /HPF; RBC,URINE 0-2 /HPF; SQUAMOUS EPITHELIAL CELL,UR RARE /HPF; WBC,URINE 0-2 /HPF
[2019-05-31 13:11] LABS: ALANINE AMINOTRANSFERASE 17 U/L (0-55); ALBUMIN 3.4 GM/DL (3.2-4.5); ALKALINE PHOSPHATASE 130 U/L (40-136); BILIRUBIN,TOTAL 0.5 MG/DL (0.1-1.0); BUN/CREATININE RATIO 17; CALCIUM 8.2 MG/DL (8.5-10.1); CARBON DIOXIDE 24 MMOL/L (21-32); CHLORIDE 92 MMOL/L (98-107); CREATININE SERUM 1.15 MG/DL (0.60-1.30); GFR ESTIMATED 45; GLUCOSE 326 MG/DL (70-105); POTASSIUM 5.1 MMOL/L (3.6-5.0); SODIUM 127 MMOL/L (135-145); TOTAL PROTEIN 7.2 GM/DL (6.4-8.2)
[2019-05-31 13:22] LABS: AMPHETAMINE SCREEN, URINE NEGATIVE (NEGATIVE); BARBITURATE SCREEN URINE POSITIVE (NEGATIVE); BENZODIAZEPINES SCREEN URINE NEGATIVE (NEGATIVE); CANNABINOID SCREEN, URINE NEGATIVE (NEGATIVE); COCAINE SCREEN URINE NEGATIVE (NEGATIVE); METHADONE STAT NEGATIVE (NEGATIVE); METHAMPHETAMINE SCREEN URINE S NEGATIVE (NEGATIVE); OPIATE SCREEN URINE NEGATIVE (NEGATIVE); OXYCODONE STAT NEGATIVE (NEGATIVE); PROPOXYPHENE STAT NEGATIVE (NEGATIVE); TRICYCLIC ANTIDEPRESSANTS SCRE NEGATIVE (NEGATIVE)
--- NOTE | 2019-05-31 13:39 | Diagnostic Imaging Report ---
EXAMINATION: Chest radiograph, portable AP view. DATE: May 31, 2019 at 1321 hours. INDICATION: 88-year-old female, unresponsive. COMPARISON: May 11, 2019. FINDINGS: There is a left-sided cardiac assist device with leads. Stable overall appearance of the cardiomediastinal silhouette. There is no identified pneumothorax. There is no large pleural effusion. There is no identified interval focal airspace consolidation. IMPRESSION: No identified interval acute cardiopulmonary abnormality. Dictated by: Dictated on workstation # [id number]
[2019-05-31 14:30] VITALS: BP 139/90
--- NOTE | 2019-05-31 14:30 | NUR ---
MAKAYLA POLANCO admitted to room 433-1, with an admitting diagnosis of AMS, HYPONATREMIA, on 05/31/19 from ER via CART, accompanied by GRANDDAUGHTER.MAKAYLA POLANCO introduced to surroundings, call light, bed controls, phone, TV, temperature control, lights, meal times, smoking policy, visitor policy, side rail policy, bathrooms and showers. Patient Rights given to patient in the handbook. MAKAYLA POLANCO verbalizes understanding that [facility] is not responsible for the loss or damage to any personal effects or valuables that are kept in the patients posession during their hospitalization. The following Patient Care Plans were discussed with the PT AND FAMILY: Discharge Planning, HIGH RISK INJURY, AND [place] VOL DEFICIT . MAKAYLA POLANCO verbalizes understanding of Interdisciplinary Patient Education. Patient and/or family were informed about the Rapid Response Team and its purpose. PT CAME TO FLOOR FROM ER WITH SL IN R AC AND L AC -- AND BALTAZAR CATHETER TO D.D. GRAND ARANA HAS BEEN CLLED AND FAX NO TO 4TH FLOOR GIVEN TO GET PT'S HOME MED LIST NOTE THAT PT'S CLTHE WERE CUT OFF HER IN ER
[2019-05-31] MEDS ORDERED: ACETAMINOPHEN 500 MG TAB (TYLENOL) PO PRN (15:00)
[2019-05-31] MEDS ORDERED: ONDANSETRON 4 MG/2 ML (SDV) Z0FRAN IV PRN (15:00)
[2019-05-31] MEDS: NS IV 1000 ML 1,000 ML IV SCH (15:05)
[2019-05-31 15:32] VITALS: BP 104/72
[2019-05-31] MEDS ORDERED: FLUC200T PO (16:15)
[2019-05-31] MEDS ORDERED: FURO-125 PO (16:16)
[2019-05-31] MEDS ORDERED: LACT20SO2 PO (16:18)
[2019-05-31] MEDS ORDERED: LEVO100T7 PO (16:20)
[2019-05-31] MEDS ORDERED: POLY17PO6 PO (16:21)
[2019-05-31] MEDS ORDERED: PHEN64.8 PO (16:25)
[2019-05-31] MEDS ORDERED: ROPI0.253 PO (16:30)
[2019-05-31] MEDS ORDERED: SENN-141 PO (16:31)
[2019-05-31] MEDS ORDERED: CARV3.122 PO (16:32)
[2019-05-31] MEDS ORDERED: NF-NACL1GT PO (16:36)
[2019-05-31] MEDS ORDERED: ONDA4TAB11 PO (16:38)
[2019-05-31] MEDS ORDERED: TRAM50TA2 PO (16:40)
[2019-05-31] MEDS ORDERED: ACET325C5 PO (16:42)
[2019-05-31] MEDS ORDERED: RT-ALBUINH INH (16:43)
[2019-05-31 20:14] VITALS: BP 113/77
[2019-06-01] VITALS: BP 132/86
[2019-06-01] MEDS: NS IV 1000 ML 1,000 ML IV SCH ×3 (00:19→10:04)
[2019-06-01 04:00] VITALS: BP 141/93
[2019-06-01 06:21] LABS: BASOPHILS % (AUTO) 0 % (0-10); EOSINOPHILS # (AUTO) 0.2 10^3/uL (0.0-0.3); EOSINOPHILS % (AUTO) 3 % (0-10); HEMATOCRIT 41 % (35-52); HEMOGLOBIN 13.8 G/DL (11.5-16.0); LYMPHOCYTES # (AUTO) 1.8 X 10^3 (1.0-4.0); LYMPHOCYTES % (AUTO) 23 % (12-44); MEAN CORPUSCULAR HEMOGLOBIN 31 PG (25-34); MEAN CORPUSCULAR HGB CONC 33 G/DL (32-36); MEAN CORPUSCULAR VOLUME 92 FL (80-99); MEAN PLATELET VOLUME 9.1 FL (7.4-10.4); MONOCYTES % (AUTO) 13 % (0-12); NEUTROPHILS # (AUTO) 4.9 X 10^3 (1.8-7.8); NEUTROPHILS % (AUTO) 62 % (42-75); PLATELET COUNT 203 10^3/uL (130-400); RED CELL DISTRIBUTION WIDTH 14.6 % (10.0-14.5)
[2019-06-01] MEDS ORDERED: LEVOTHYROXINE 75 MCG (LEVOTHROID) TABLET PO SCH (06:30)
[2019-06-01 06:50] LABS: ALANINE AMINOTRANSFERASE 14 U/L (0-55); ALBUMIN 3.2 GM/DL (3.2-4.5); ALKALINE PHOSPHATASE 93 U/L (40-136); BILIRUBIN,TOTAL 0.4 MG/DL (0.1-1.0); BUN/CREATININE RATIO 20; CALCIUM 8.3 MG/DL (8.5-10.1); CARBON DIOXIDE 22 MMOL/L (21-32); CHLORIDE 100 MMOL/L (98-107); CHOLESTEROL 195 MG/DL (< 200); CREATININE SERUM 0.65 MG/DL (0.60-1.30); GFR ESTIMATED > 60; GLUCOSE 96 MG/DL (70-105); HDL CHOLESTEROL 45 MG/DL (40-60); POTASSIUM 3.5 MMOL/L (3.6-5.0); SODIUM 133 MMOL/L (135-145); TOTAL PROTEIN 6.5 GM/DL (6.4-8.2); TRIGLYCERIDES 107 MG/DL (<150); VLDL CHOLESTEROL 21 MG/DL (5-40)
[2019-06-01] MEDS ORDERED: ONDANSETRON 4 MG (ZOFRAN) ORAL DISSOLVE TAB PO PRN (08:30)
[2019-06-01] MEDS ORDERED: ACETAMINOPHEN 325 MG TABLET PO PRN (08:30)
[2019-06-01] MEDS ORDERED: POLYETHYLENE GLYCOL 17 GM (MIRALAX) PACK PO PRN (08:30)
[2019-06-01] MEDS ORDERED: SENNOSIDES 8.6 MG (SENOKOT) TAB PO PRN (08:30)
[2019-06-01] MEDS ORDERED: LACTULOSE SYRUP 10GM/15ML (ENULOSE) 30ML UDC PO PRN (08:30)
[2019-06-01 08:40] VITALS: BP 118/76
[2019-06-01] MEDS ORDERED: CALCIUM CARB + VIT D 600 MG (CALCARB + D) TAB PO SCH (09:00)
[2019-06-01] MEDS ORDERED: CARVEDILOL 3.125 MG (COREG) TABLET PO SCH (09:00)
[2019-06-01] MEDS ORDERED: hydrALAZINE (APRESOLINE) 25 MG TAB PO SCH (09:00)
[2019-06-01] MEDS ORDERED: fluCOnazole (DIFLUCAN) 100 MG TAB PO SCH (09:00)
[2019-06-01] MEDS ORDERED: OMEGA 3 (FISH OIL) 1000 MG CAP PO SCH (09:00)
[2019-06-01] MEDS ORDERED: FUROSEMIDE 20 MG (LASIX) TAB PO SCH (09:00)
[2019-06-01] MEDS ORDERED: FLECAINIDE 100 MG (TAMBOCOR) TAB PO SCH (09:00)
[2019-06-01] MEDS ORDERED: MULTIVIT W/MINERALS TAB (THERAGRAN M) PO SCH (09:00)
[2019-06-01] MEDS ORDERED: DOCUSATE SODIUM 100 MG (COLACE) CAP PO SCH (09:00)
[2019-06-01] MEDS ORDERED: ASPIRIN E.C. 325 MG (ECOTRIN) TABLET PO SCH (09:00)
--- NOTE | 2019-06-01 09:49 | Short Stay Summary-Hospitalist ---
History of Present Illness HPI/Chief Complaint Patient is an 88-year-old female with a past medical history of hypertension hypothyroidism dementia, arrhythmia status post pacemaker who presented to the emergency department for episode of altered mentation. She states that she is not sure why she came to the hospital she just knows she went to take a nap and didn't wake up. Per granddaughter she was normal yesterday morning at her assisted living facility and went to take a nap and when staff found her to have difficulty resting. She was brought to the hospital for evaluation and his GCS was around 6 she was almost intubated. Just prior to intubation her mentation improved and she became more alert and oriented. Granddaughter states this has happened previously when she has gotten dehydrated and her sodium has gotten low. I spoke with son on the phone who states she is to be drinking Gatorade regularly but that it is To the refrigerator and she is not able to access it so he does not believe this is happening. Overnight she was alert but became more confused. They state this is her baseline and believe she suffers from owning. This morning patient is relatively well-oriented and has no complaints. Source: patient, family Exam Limitations: clinical condition Date Seen 06/01/19 Time Seen by a Provider: 09:49 Attending Physician Radha Hensley MD PCP No,Local Physician Referring Physician Date of Admission May 31, 2019 at 1:20 pm Home Medications & Allergies Home Medications Reviewed patient Home Medication Reconciliation performed by pharmacy medication reconciliations aircraft technician and/or nursing. Patients Allergies have been reviewed. Allergies Allergies Coded Allergies codeine (Unverified Allergy, Unknown, 01/01/16) hydrocodone (Unverified Allergy, Unknown, 01/01/16) iodine (Verified Allergy, Unknown, 01/01/16) sulfamethoxazole (Unverified Allergy, Unknown, 01/01/16) trimethoprim (Unverified Allergy, Unknown, 01/01/16) Uncoded Allergies IV DYE ( Allergy, Unknown, 01/01/16) Past Vepkdet-Dwjdsk-Kexuua Hx Past Med/Social Hx: Reviewed Nursing Past Med/Soc Hx Patient Social History Employed/Student: retired Alcohol Use: Denies Use Recreational Drug Use: No Smoking Status: Never a Smoker 2nd Hand Smoke Exposure: No Physical Abuse Screen: No Sexual Abuse: No Recent Foreign Travel: No Contact w/other who traveled: No Recent Hopitalizations: No Recent Infectious Disease Expo: No Immunizations Up To Date Tetanus Booster (TDap): Less than 5yrs Date of Pneumonia Vaccine: May 01, 2017 Seasonal Allergies Seasonal Allergies: No Past Medical History Surgeries: Joint Replacement, Pacemaker Cardiac: Atrial Fibrillation, Irregular Heartbeat Neurological: Seizure Disorder, TIA Reproductive: No Musculoskeletal: Arthritis History of Blood Disorders: No Family History Reviewed Nursing Family Hx No Pertinent Family Hx Review of Systems Constitutional: no symptoms reported EENTM: no symptoms reported Respiratory: no symptoms reported Cardiovascular: No chest pain, No palpitations Gastrointestinal: no symptoms reported Genitourinary: No decreased output, No dysuria, No frequency, No hematuria; incontinence (baseline) Musculoskeletal: muscle weakness, other (falls) Skin: no symptoms reported Psychiatric/Neurological: See HPI Physical Exam Physical Exam Vital Signs Vital Signs - First Documented 05/31/19 05/31/19 12:30 12:38 Temp 96.9 Pulse 83 Resp 19 B/P (MAP) 143/106 (118) Pulse Ox 92 O2 Delivery Room Air O2 Flow Rate 2.00 Capillary Refill : Less Than 3 Seconds Height, Weight, BMI Height: 4'10.00" Weight: 152lbs. 0.0oz. [id number]; 31.8 BMI Method:Stated General Appearance: No Apparent Distress, WD/WN, Chronically ill HEENT: Moist Mucous Membranes; No Scleral Icterus (L), No Scleral Icterus (R) Neck: Normal Inspection Respiratory: Lungs Clear, No Accessory Muscle Use, No Respiratory Distress Cardiovascular: Regular Rate, Rhythm, No Murmur Gastrointestinal: Normal Bowel Sounds, Non Tender, Soft Genital/Rectal: Other (catheter in place) Extremity: Normal Capillary Refill, No Calf Tenderness, No Pedal Edema Neurologic/Psychiatric: Alert, Normal Mood/Affect; No Aphasia, No Facial Droop; Other (oriented to current details, unable to tell me events from yesterdayf) Skin: Normal Color, Warm/Dry Results Results/Procedures Labs Laboratory Tests 05/31/19 12:40 06/01/19 06:00 Patient resulted labs reviewed. Imaging: Reviewed Imaging Report Imaging Date of Exam: 05/31/19 CT HEAD WO-R/O STROKE PROCEDURE: CT head wo r/o stroke. TECHNIQUE: Multiple contiguous axial images were obtained through the brain without the use of intravenous contrast. Auto Exposure Controls were utilized during the CT exam to meet ALARA standards for radiation dose reduction. DATE: May 31, 2019. COMPARISON: CT head March 23, 2019. INDICATION: 88-year-old female, stroke. Unresponsive. FINDINGS: There are prominent areas of low attenuation in the periventricular and subcortical white matter. These are nonspecific but may reflect advanced changes of chronic small vessel ischemic disease. There are areas of near CSF attenuation in the left periventricular matter which may relate to changes of encephalomalacia. There is also prominent low attenuation in the left occipital lobe which is near CSF attenuation. This is also unchanged since comparison exam and most likely relates to sequela of prior insult. There is mild proportional prominence of the ventricles and CSF spaces compatible with mild cerebral volume loss. There is a calcification in the left temporal lobe without adjacent low attenuation which is unchanged since comparison exam. This is also unchanged dating back to January 01, 2016. This is most compatible with benign etiology. There is no additional identified abnormal intracranial calcification. There is no mass effect or midline shift. There is no acute intracranial hemorrhage. There is no abnormal extra-axial fluid collection. The visualized portions of the paranasal sinuses, mastoid air cells and middle ears are well aerated. IMPRESSION: 1. No identified interval acute intracranial abnormality. 2. Probable extensive changes of chronic small vessel ischemic disease with changes of encephalomalacia in the left periventricular white matter and left occipital lobe. 3. Small calcification in the left temporal lobe is unchanged since at least December 2015 compatible with benign etiology. Short Stay Diagnosis Discharge Diagnosis-Short Stay Admission Diagnosis Altered Mental Status Final Discharge Diagnosis Altered Mental Status Conclusion Plan Altered Mental Status Improved this morning but Likely multifactorial Improving with IVF and holding of home barbiturates Phenobarbital level pending Will get cardiology consult A-fib Pacemaker in place Not on anticoagulation- high fall risk likely the reason Cardiology consulted, appreciate assistance Dementia Discussed with granddaughter about reasons for worsening while in the hospital granddaughter expressed possible need for escalating to SNF vs [facility] Hyponatremia Chronic, acutely worse yesterday though Resolved with IVF to baseline Discussed with daughter who states she is always in the low 130s and patient drinks little to no free water after PCP recommended free water restriction Dispo: Family requesting transfer to [place] for evaluation by cardiology who knows patient. I returned to room to discuss with patient and granddaughter at [facility] and also had a lengthy conversation with an out of town daughter on the phone. They have requested transfer to [place] as they are unhappy with care here. I called [place] Transfer line at [phone]. I spoke with Dr Maxwell at [phone]. I discussed the case with the transportation dispatch manager hospitalist in regards to further work up and family desire for continuity of care with cardiology. Patient may benefit from MRI as well given history of TIA and a-fib off anticoagulation which we are unable to do here on the weekend. After acceptance discussed with family who originally requested to transport patient to via private vehicle to [place]. Conferred with accepting physician who would prefer them to transport via EMS as well. Discussed risks and benefits and medical recommendation to transfer with EMS. After family conferred they agreed to transfer via ambulance. Arrangements were made. I called and spoke with radiology here and had CT head clouded over as well. Clinical Quality Measures DVT/VTE Risk/Contraindication: Risk Factor Score Per Nursin RFS Level Per Nursing on Admit: 3=High RADHA HENSLEY MD Jun 01, 2019 09:49
[2019-06-01] MEDS: SODIUM CHLORIDE 1 GM TAB (NON-FORMULARY) PO SCH ×2 (10:05→13:16)
[2019-06-01 11:44] VITALS: BP 123/84
--- NOTE | 2019-06-01 14:35 | NUR ---
PT FAMILY HAVE REQUESTED PT BE TRANSFERRED TO [place] -- PT SEE DR GALO FOR CARDIAC ISSUES - DR VALENZUELA IS WORKING ON GETTING PT TRANSFERRED THERE
--- NOTE | 2019-06-01 16:05 | NUR ---
THIS RN CALLED JULIA (PT TO GO TO [facility] 174) TO GIVE REPORT TO JULIA RN -- CALLED [phone] AND WAS TOLD THE NURSE WAS ON THE PHONE AND WAS GIVEN THIS NUMBER TO CALL BACK IS [facility] [phone]) Addendum: 06/01/19 at 1615 by CAPRICE SAMUEL RN ABOVE NOTE IN ERROR WRONG CHART
--- NOTE | 2019-06-01 17:44 | Cardiology Progress Note ---
Subjective Date Seen by Provider: Jun 01, 2019 Time Seen by Provider: 12:00 Subjective/Events-last exam Patient was seen at bedside, her granddaughter is near her, I visited with them, reportedly she has been having multiple syncopal episode, last episode occurred when she went to take a nap could not wake her up, brought to the hospital. The granddaughter explained to me that she had extensive cardiac history that has been managed by Dr. Ramirez and they prefer to have Dr. Ramirez evaluating her, they are concerned that she might need to upgrade her pacemaker to a defibrillator. I explained to them that we can interrogate her pacemaker regarding any arrhythmia but they would prefer to transfer her to [place] for evaluation. I did not perform any physical examination and explained to them that she can be transferred upon their request Focused Exam Lactate Level 05/31/19 12:45: Lactic Acid Level 1.21 Objective-Cardiology Exam Last Set of Vital Signs Vital Signs 06/01/19 06/01/19 11:44 13:00 Temp 98.2 Pulse 92 Resp 18 B/P (MAP) 123/84 (97) Pulse Ox 94 O2 Delivery Room Air Capillary Refill : Less Than 3 Seconds I&O Intake and Output 06/01/19 00:00 Intake Total 2710 ml Output Total 1875 ml Balance 835 ml Intake Oral 200 ml IV Total 2510 ml Output Urine Total 1875 ml Daily Weight Change No No General: Other (No examination was done) Results Lab Laboratory Tests 06/01/19 06:00 A/P-Cardiology Admission Diagnosis Transfer to [facility] per family request Clinical Quality Measures DVT/VTE Risk/Contraindication: Risk Factor Score Per Nursin RFS Level Per Nursing on Admit: 3=High TIMMY MORROW MD Jun 01, 2019 17:44
[2019-06-01 19:25] VITALS: BP 123/84
[2019-06-01] MEDS ORDERED: rOPINIRole 0.25 MG (REQUIP) TAB PO SCH (21:00)
[2019-06-01] MEDS ORDERED: SIMvastatin 20 MG (ZOCOR) TAB PO SCH (21:00)
[2019-06-01] MEDS ORDERED: PHENobarbital 64.8 MG (1 GRAIN) TAb PO SCH (21:00)
[2019-06-02] MEDS ORDERED: LEVOTHYROXINE 100 MCG (LEVOTHROID) TAB PO SCH (06:30)
== END 2019-06-01 19:25 | disposition designated cancer center or children's hospital (05) ==
LOC: EDUNIT# 12:29 → ER 12:30 → 4TH 13:20 → UNDOADMOB 13:20 → 4TH 14:30 → UNDODISOB 06-01 19:33
PROVIDERS: ADMIT Family Medicine; ATTEND Family Medicine
DX: R41.82 Altered mental status, unspecified (principal); I48.91 Unspecified atrial fibrillation; I10 Essential (primary) hypertension; E78.1 Pure hyperglyceridemia; E03.9 Hypothyroidism, unspecified; G40.309 Generalized idiopathic epilepsy and epileptic syndromes, not intractable, without status epilepticus; Z88.2 Allergy status to sulfonamides; Z88.6 Allergy status to analgesic agent; Z88.1 Allergy status to other antibiotic agents; Z91.040 Latex allergy status; Z91.041 Radiographic dye allergy status; Z79.82 Long term (current) use of aspirin; Z95.0 Presence of cardiac pacemaker; Z86.73 Personal history of transient ischemic attack (TIA), and cerebral infarction without residual deficits
CPT/HCPCS: 36415; 70450; 71045; 80053; 80061; 80184; 80306; 81000; 82805; 82962; 83605; 84484; 85025; 85379; 85610; 85730; 87040; 93005; 93041; 96374; G0378